=== PATIENT | male | born 1950 | race Caucasian/White ===

== ENCOUNTER → 2017-03-21 12:17 | Outpatient (CLI) | payer OTHER, SELFPAY ==
--- NOTE | 2017-03-21 12:27 | XR_ITS ---
XR lumbar spine min 4V Ordering Physician: Maria Isabel Baldwin MD Patient Age: 67 years: Male HISTORY: ITS.REASON: RT HIP/BACK PAIN TECHNIQUE: 5 view lumbar spine series COMPARISON :None available FINDINGS The lumbar vertebral bodies are intact. No compression fracture. Normal alignment. . The slight irregular appearance of the left L1 transverse process is similar to chest film and rib films from January 27, 2013. And may reflect old fracture left L1 transverse process but no acute finding. No pars defect. No listhesis Disc space narrowing most evident at L5/S1 with vacuum phenomena. There may be some partial sacralization of L5 to the right. Question a line of suture material to the left the spine possibly from previous renal surgery. Several vascular clips along the left periaortic region as well. Clinical correlation required. Left nephrectomy? IMPRESSION. 1. No prominent findings. No significant change: Observations: ... Narrowed Degenerative disc at L5/S1 most notable degenerative feature.. ... Only Borderline narrowing posterior L4-5 disc space. ... Partial sacralization L5 to the right-anatomical variant
== END ==
PROVIDERS: PCP Family Medicine; Visit Provider Family Medicine
DX: M54.41 Lumbago with sciatica, right side (principal)
CPT/HCPCS: 72110

== ENCOUNTER → 2017-03-25 09:15 | Outpatient (CLI) | payer OTHER, SELFPAY ==
--- NOTE | 2017-03-25 09:15 | MR_ITS ---
MR lumbar spine wo con, MR 3-d myelogram/MRCP HISTORY: Low back pain, right-sided leg pain, sciatica, pain and numbness down right leg ITS.REASON: SPRAIN OF LOW BACK, RIGHT SIDED SCIATICA ORDERING PHYSICIAN: Maria Isable Baldwin MD PATIENT AGE: 67 years COMPARISON: 03/21/2017 TECHNIQUE: Standard multiplanar multiecho sequences are performed without contrast. 3-D MIP and myelographic images are also rendered and reviewed FINDINGS: There is normal alignment. The spinal cord ends at the L1 level. T12-L1, L1-L2, L2-L3, and L3-L4 have an unremarkable appearance. L4-L5: There is a medium-sized right paracentral disc herniation with inferior extrusion compressing upon the right L5 nerve root and causing right lateral recess narrowing. The disc is extruded inferiorly for a length of approximately 1.7 cm.. Inferiorly the disc moves into the right lateral recess and medial aspect of the foramen of L5-S1. L5-S1: Degenerative disc disease with bulging disc slightly eccentric to the left with endplate osteophytes with moderate to severe bilateral foraminal narrowing left greater than right. The bulging disc abuts the left S1 nerve root. Left kidney is not identified and presumed surgically removed. IMPRESSION: 1. Medium-sized right paracentral disc herniation at L4-L5 with inferior extrusion compressing upon the right L5 nerve root and causing right lateral recess narrowing. The disc is extruded inferiorly for a length of approximately 1.7 cm.. Inferiorly the disc moves into the right lateral recess and medial aspect of the foramen of L5-S1. 2. Degenerative disc disease L5-S1 with bulging disc slightly eccentric to the left with endplate osteophytes with moderate to severe bilateral foraminal narrowing left greater than right. The bulging disc abuts the left S1 nerve root
== END ==
PROVIDERS: Family Provider Family Medicine; PCP Family Medicine; Visit Provider Family Medicine
DX: S33.9XXD Sprain of unspecified parts of lumbar spine and pelvis, subsequent encounter (principal); M54.41 Lumbago with sciatica, right side; M51.37 Other intervertebral disc degeneration, lumbosacral region
CPT/HCPCS: 72148; 76376

== ENCOUNTER 2017-06-09 08:00 | Outpatient (RCR) | payer OTHER, SELFPAY | END 2017-06-09 08:01 | disposition home or self-care (01) | LOC: PT 08:00 | PROVIDERS: Family Provider Family Medicine; PCP Family Medicine; Visit Provider Neurological Surgery | DX: M45.4 Ankylosing spondylitis of thoracic region (principal) | CPT/HCPCS: 97010; 97012; 97014; 97110; 97164; G0283 ==

== ENCOUNTER 2017-09-01 08:00 | Outpatient (RCR) | payer OTHER, SELFPAY | END 2017-09-01 08:01 | disposition home or self-care (01) | LOC: PT 08:00 | PROVIDERS: Family Provider Family Medicine; PCP Family Medicine; Visit Provider Neurological Surgery | DX: M54.5 Low back pain (principal) | CPT/HCPCS: 97010; 97012; 97014; 97110; 97163; G0283 ==

== ENCOUNTER → 2019-07-25 13:31 | Outpatient (CLI) | payer MEDICARE, BC, SELFPAY ==
--- NOTE | 2019-07-25 13:34 | MR_ITS ---
PROCEDURE: MR SHOULDER LT WO CON CLINICAL INDICATION: PAIN IN LEFT SHOULDER Left shoulder pain COMPARISON: No exams were available for comparison TECHNIQUE: Routine multiplanar multi echo sequences are performed without gadolinium enhancement. FINDINGS: There is some thickening with increased T2 signal of the supraspinatus and infraspinatus tendons distally consistent with tendinopathy/tendinosis. There is no evidence of rotator cuff tear. There is mild subacromial stenosis with a subacromial space measuring 5 mm. No significant hypertrophic change of the acromioclavicular joint however. The the bicipital tendon is in place. There appears to be a [place] complex with a thickened middle glenohumeral ligament and absent anterior labrum from the 12 to 3 o'clock position. There is a small amount of fluid in the sub coracoid region. The subscapularis and teres minor tendons appear intact. IMPRESSION: 1. Tendinopathy/tendinosis of the supraspinatus and infraspinatus tendon with mild subacromial stenosis. 2. No evidence of rotator cuff tear. 3. Daya complex as a normal variant. 4. Mild subcoracoid bursitis Dictated by: Daniel Farris MD 07/26/2019 14:29 Electronically signed by Daniel Farris MD in [place] 07/26/2019 14:29
== END ==
PROVIDERS: PCP Family Medicine; Visit Provider Family Medicine
DX: M25.512 Pain in left shoulder (principal)
CPT/HCPCS: 73221

== ENCOUNTER 2019-10-30 10:00 | Outpatient (RCR) | payer MEDICARE, BC, SELFPAY ==
--- NOTE | 2019-08-07 11:05 | HMH.PTOPEV ---
PT Outpatient Evaluation Rehab PT Outpatient Evaluation Start: 08/07/19 10:05 Freq: Status: Active Protocol: Document 08/07/19 10:05 ERNIE (Rec: 08/07/19 11:05 ERNIE [id number]) Electronically Signed By Leroy High, PT 08/07/19 10:05 Outpatient Therapy Subjective History Subjective History Pt reports insidious onset L sided neck pain/soreness beginning in fall/winter, however, 'I think since the weather has gotten better I've been doing more, and that's got it fired up'. Pt reports L UT mm pain with referred pain into cervical region. Chief Complaint Pain,Spasms,Stiff Symptom Type Ache,Dull Symptoms Relieved By Rest/Positioning,Ice Symptoms Aggravated By Physical Activity,Lifting Prior Functional Limitations Lifting,Housework Current Functional Limitations Lifting,Housework Symptom Description Constant but Variable Level of pain today (0-10) 2 Pain scale - at its best (0-10) 1 Pain scale - at its worst (0-10) 5 Cervical Eval Palpation Cervical Muscles L Upper Trapezius Cervical/Thoracic Palpation Findings Trigger Point Posture Head/C-Spine Posture Sitting Position Flexed Head/C-Spine Posture Standing Position Flexed Flexibility Deficits Upper Trapezius Muscle Length (L) Moderate Tightness Levaetor Scapulae Muscle Length (L) Moderate Tightness Scalene Group Muscle Length (L) Moderate Tightness Passive Joint Mobility Cervical PIVM WNL: R OA L OA R AA L AA R C2/3 L C2/3 R C3/4 L C3/4 R C4/5 L C4/5 R C5/6 L C5/6 R C6/7 L C6/7 R C7/T1 L C7/T1 Special Test C-Spine Foraminal Compression (Sp[place]) Negative Left,Negative Right Test Shoulder/Elbow Eval Shoulder Objective Measurements Shoulder ROM Bilateral full ROM shoulder exam standard left Shoulder MMT Left Shoulder Abduction Strength Grade 5 Normal Shoulder Flexion Strength Grade 5 Normal Shoulder External Rotation Strength 4 Good Grade
--- NOTE | 2019-09-04 08:17 | HMH.RHREAS ---
Rehab Reassessment Rehab OP Re-assessment Start: 09/04/19 07:47 Freq: Status: Active Protocol: Document 09/04/19 07:47 ERNIE (Rec: 09/04/19 08:17 ERNIE [id number]) Electronically Signed By Leroy High, PT 09/04/19 07:47 Rehab Re-assessment Subjective Subjective Pt reports slight exacerbation over the last 2-3 days, ' there's been a slight burning sensation in that same upper trap area on the left'. Pt reports 'this was a step back, but overall I think it's better'. Objective Objective Notes CROM: WFL ALL DIRECTIONS, AROM L SH WFL ALL DIRECTIONS MMT: L DELTOID 4+-5/5, L IR 5/ 5, L ER 4+/5 TTP: L UT 2/4 MM FLEXIBILITY: L UT 75% OF WFL, L SCALENE 75-80% OF WFL Assessment Progress Assessment Slower Than Expected Assessment Notes PT W/IMPROVED STRENGTH, TTP, AND ROM Patient goals met STG'S 06/06 Goals Not Met STG'S 07/06 Plan Plan PT TO CONT. W/SKILLED P.T. TO MAKE FURTHER IMPROVEMENTS IN ROM, STRENGTH, AND TTP TO ALLOW FOR OPTIMAL FUNCTION Frequency of Therapy 2-3X/WK Duration of therapy 2-4WKS Time and Billing Re-Eval Time 15 Re-Eval Billing Units 0 PHYSICIAN CERTIFICATION: I certify the specified therapy services for Juan Pablo Elena are required, authorized, and reviewed every 30 days.
== END 2019-10-30 11:02 | disposition home or self-care (01) ==
LOC: PT 10:00
PROVIDERS: PCP Family Medicine; Visit Provider Family Medicine
DX: M25.512 Pain in left shoulder (principal)
CPT/HCPCS: 20560; 97010; 97014; 97035; 97110; 97140; 97163; 97164; G0283

== ENCOUNTER 2020-04-16 10:00 | Outpatient (RCR) | payer MEDICARE, BC, SELFPAY ==
--- NOTE | 2020-02-06 14:07 | HMH.PTOPEV ---
PT Outpatient Evaluation Rehab PT Outpatient Evaluation Start: 02/06/20 12:53 Freq: Status: Active Protocol: Document 02/06/20 13:17 ERNIE (Rec: 02/06/20 14:06 ERNIE [id number]) Electronically Signed By Leroy High, PT 02/06/20 13:17 Outpatient Therapy Subjective History Subjective History Pt reports h/o chronic neck pain for ~2 yrs, exacerbation over of the last ~6 months. Pt reports L sided neck pain with referred pain into L UTmm , L shoulder blade area, and intermittent cervicogenic MACK's . MRI of L SH has revealed supra- and infraspinatus tendinitis. Chief Complaint Pain,Stiff,Swelling, Paresthesia Symptom Type Ache,Sharp,Dull,Burning, Numbness,Tingling Symptoms Relieved By Prescription Meds Symptoms Aggravated By Physical Activity,Lifting Prior Functional Limitations Lifting,Housework Current Functional Limitations Lifting,Housework,Driving, Sleeping Symptom Description Constant but Variable Level of pain today (0-10) 3 Pain scale - at its best (0-10) 0 Pain scale - at its worst (0-10) 7 Cervical Eval Palpation Cervical Muscles L Cervical Paraspinal,L Suboccipital,L CT [place]unction,L Upper Trapezius Cervical/Thoracic Palpation Findings Tenderness,Trigger Point Posture Head/C-Spine Posture Sitting Position Flexed Head/C-Spine Posture Standing Position Flexed Flexibility Deficits Upper Trapezius Muscle Length (L) Mild Tightness Levaetor Scapulae Muscle Length (L) Mild Tightness Scalene Group Muscle Length (L) Mild Tightness Pectoralis Major Muscle Length (R) Mild Tightness,(L) Mild Tightness Pectoralis Minor Muscle Length (R) Mild Tightness,(L) Mild Tightness Passive Joint Mobility Cervical PIVM Dec: R OA L OA R AA L AA R C2/3 L C2/3 R C3/4 L C3/4 R C4/5 L C4/5 R C5/6 L C5/6 R C6/7 L C6/7
--- NOTE | 2020-03-12 10:36 | HMH.RHREAS ---
Rehab Reassessment Rehab OP Re-assessment Start: 03/12/20 09:47 Freq: Status: Active Protocol: Document 03/12/20 10:32 ERNIE (Rec: 03/12/20 10:35 ERNIE [id number]) Electronically Signed By Leroy High, PT 03/12/20 10:32 Rehab Re-assessment Subjective Subjective PT REPORTS 0-2/10 L SIDED NECK PAIN ON VAS, AND FEELS 80-90% BETTER SINCE I EVAL Objective Objective Notes CROM: FLX 0-60, EXT 0-55, B SB 0-50, B ROT 0-65 MMT: L DELTOID 4-4+/5 TTP: L UT MM 03/03 Assessment Progress Assessment Progressing as Expected Assessment Notes IMPROVED CROM, STRENGTH, AND TTP Patient goals met STG'S 08/03 LTG'S 06/05 Goals Not Met LTG'S 06/05 Plan Plan PT TO CONT. W/SKILLED P.T. TO MAKE FURTHER IMPROVEMENTS IN CROM, STRENGTH, AND TTP TO ALLOW FOR OPTIMAL FUNCTION Frequency of Therapy 1-2X/WK Duration of therapy 2-4 WKS Time and Billing Re-Eval Time 15 Re-Eval Billing Units 0 PHYSICIAN CERTIFICATION: I certify the specified therapy services for Juan Pablo Elena are required, authorized, and reviewed every 30 days.
== END 2020-04-16 10:05 | disposition home or self-care (01) ==
LOC: PT 10:00
PROVIDERS: PCP Family Medicine; Visit Provider Family Medicine
DX: M25.512 Pain in left shoulder (principal); M54.2 Cervicalgia
CPT/HCPCS: 20560; 97010; 97012; 97014; 97035; 97110; 97163; 97164; G0283

== ENCOUNTER → 2020-12-04 15:39 | Outpatient (CLI) | payer MEDICARE, BC, SELFPAY ==
--- NOTE | 2020-12-04 15:43 | MR_ITS ---
PROCEDURE INFORMATION: Exam: MR Left Lower Extremity Joint Without Contrast, Knee Exam date and time: 12/04/2020 3:43 PM Age: 70 years old Clinical indication: Pain; Knee; Left; Additional info: Acute pain of left knee TECHNIQUE: Imaging protocol: MR of the Left lower extremity joint without contrast. Exam focused on the knee. COMPARISON: No relevant prior studies available. FINDINGS: Bones and cartilage: Mild edema posteromedial to the knee. A small patellar enthesophyte is visualized. There is cartilage thinning/loss at the weight-bearing surface of the medial femoral condyle. No visualized acute marrow edema. No dislocation of the knee. Joint spaces: Small patellofemoral joint effusion. Medial meniscus: There is a horizontal tear of the posterior horn and body of the medial meniscus, which is predominantly intrasubstance. Myxoid degeneration of the posterior horn of the medial meniscus. Lateral meniscus: No visualized tear of the lateral meniscus extending to an articulating surface. Myxoid degeneration of the lateral meniscus. Anterior cruciate ligament: The proximal anterior cruciate ligament is small in caliber with abnormal signal intensity between this ligament and the lateral femoral condyle. Partial tear is suggested. Posterior cruciate ligament: No tear. Medial capsule and supporting structures: Mild edema adjacent to the medial collateral ligament, consistent with a grade 1 MCL injury/sprain. Lateral capsule and supporting structures: Mild fluid adjacent to the popliteus tendon, without visualized tear. No visualized tear of the lateral collateral ligament. Extensor mechanism of knee: No tear. Muscles: No visualized acute abnormality. Soft tissues: Edema within Hoffa's fat. Mild soft tissue swelling anteriorly. The mild additional soft tissue edema posteriorly. A multiloculated cystic collection of fluid is identified posterior to the knee measuring 1.5 x 2.1 x 1.1 cm. IMPRESSION: 1. Grade 1 MCL injury/sprain. 2. The proximal anterior cruciate ligament is small in caliber with abnormal signal intensity between this ligament and the lateral femoral condyle. Partial tear is suggested. 3. There is a horizontal tear of the posterior horn and body of the medial meniscus, which is predominantly intrasubstance. Myxoid degeneration of the posterior horn of the medial and lateral menisci. 4. Mild soft tissue swelling. A multiloculated cystic collection of fluid is identified posterior to the knee measuring 1.5 x 2.1 x 1.1 cm. 5. Additional findings described above.
== END ==
PROVIDERS: PCP Family Medicine; Visit Provider Family Medicine
DX: M25.562 Pain in left knee (principal)
CPT/HCPCS: 73721

== ENCOUNTER 2021-01-08 10:00 | Outpatient (RCR) | payer MEDICARE, BC, SELFPAY ==
--- NOTE | 2020-12-16 11:07 | HMH.PTOPEV ---
PT Outpatient Evaluation Rehab PT Outpatient Evaluation Start: 12/16/20 10:02 Freq: Status: Active Protocol: Document 12/16/20 10:16 ERNIE (Rec: 12/16/20 11:07 ERNIE [id number]) Electronically Signed By Leroy High, PT 12/16/20 10:16 Outpatient Therapy Subjective History Subjective History Pt reports chronic left knee pain since sustaining injury during deep squat ~3 months ago. Pt reports immediate onset posterior (popiteal) left knee pain and pressure, no clicking, catching reported . REcent MRI of left knee has revealed partial MCL tear, medial mensicus tear, partial ACL tear, however, pt reports no instability. Chief Complaint Pain,Stiff Symptom Type Ache,Sharp,Dull Symptoms Relieved By Rest/Positioning Symptoms Aggravated By Physical Activity Prior Functional Limitations Squatting Current Functional Limitations Squatting Symptom Description Intermittent Level of pain today (0-10) 0 Pain scale - at its best (0-10) 0 Pain scale - at its worst (0-10) 5 Hip/Knee Eval Gait Observation General Gait Pattern Observation No Deviations/Normal Assistive Device Assistive Devices None / NA Palpation Tenderness left Knee Palpation Finding Tenderness Knee Palpation Overall Comment 1-2/4 MCL MMT Hip Flexion Strength Grade 5 Normal Hip Abduction Strength Grade 4 Good Hip Adduction Strength Grade 4 Good Hip Extension Strength Grade 5 Normal Hip External Rotation Strength Grade 5 Normal Hip Internal Rotation Strength Grade 5 Normal Knee Extension Strength Grade 5 Normal Knee Flexion Strength Grade 5 Normal ROM Knee Flexion Active Range of Motion ( 0-125 degrees) Knee ROM Reason Not Measured Within Functional Limits Outpatient Therapy Assessment Impairments Problems/Impairmments Palpation Tenderness,Impaired Strength,Impaired Squatting, Subjective C/O Pain,Impaired Self Care/Self Management Prognosis Rehab Potential Good Clinical Impression Consistent with Diagnosis Yes Short Term Goals Number of Weeks 2-4 Decreased Palpation Tenderness Yes: 0-1/4 left knee MCL Increase Strength Yes: 4+-5/5 LLE Improve Ability to Squat Yes: WFL FULL DEPTH LULY. LE'S Decrease Subjective C/O Pain Yes: 0-2/10 W/DEEP SQUATTING Patient to be Ind w/ HEP
== END 2021-01-08 10:05 | disposition home or self-care (01) ==
LOC: PT 10:00
PROVIDERS: PCP Family Medicine; Visit Provider Family Medicine
DX: S83.512D Sprain of anterior cruciate ligament of left knee, subsequent encounter (principal)
CPT/HCPCS: 97014; 97035; 97110; 97163; G0283

== ENCOUNTER → 2021-01-31 09:13 | Outpatient (CLI) | payer MEDICARE, BC, SELFPAY ==
[2021-01-31 09:29] LABS: Microscopic, Urine URINE MICROSCOPIC (MICROSCOPIC)
[2021-01-31 09:51] LABS: Basophils # 0.1 K/mm3 (0-0.2); Basophils % 0.8 % (0.1-2.0); Eosinophils # 0.2 K/mm3 (0.0-0.4); Eosinophils % 3.2 % (0.1-12.0); Hematocrit 46.1 % (42.0-52.0); Hemoglobin 15.3 g/dL (14.1-18.0); Lymphocytes # 1.5 K/mm3 (0.7-4.5); Lymphocytes % 23.2 % (10-50); Mean Corpuscular HGB Conc 33.2 g/dL (31.8-35.4); Mean Corpuscular Hemoglobin 29.8 pg (27.0-31.2); Mean Corpuscular Volume 89.6 fl (80-94); Mean Platelet Volume 8.2 fl (7.4-10.4); Monocytes # 0.4 K/mm3 (0.1-1.0); Monocytes % 6.5 % (1.7-9.3); Neutrophils # 4.2 K/mm3 (1.8-7.8); Neutrophils % 66.2 % (37.0-80.0); Platelet Count 222 K/mm3 (142-424); Red Blood Count 5.15 M/mm3 (4.60-6.20); Red Cell Distribution Width 12.4 % (11.5-17.5); White Blood Count 6.4 K/mm3 (4.8-10.8)
[2021-01-31 10:12] LABS: Appearance,Urine CLEAR (Clear); Bilirubin,Urine Negative (Negative); Blood, Urine Negative (Negative); Color,Urine YELLOW (Yellow); Glucose,Urine (UA) Negative (Negative); Ketones,Urine Negative (Negative); Leukocyte Esterase,Urine Negative (Negative); Nitrate,Urine Negative (Negative); Protein,Urine Negative (Negative); Urobilinogen,Urine 0.2 EU/dl (0.2)
[2021-01-31 10:27] LABS: Creatinine,Urine Random 134 mg/dL (Not Estab.); Total Protein,Urine Random < 5.0 mg/dL (0.0-12.0)
[2021-01-31 10:28] LABS: Squamous Epithelial Cell,Urine Occasional #/hpf (0-5)
[2021-01-31 11:41] LABS: Albumin Level 4.3 g/dl (3.5-5.0); Anion Gap 10.7 mEq/L (5-15); Blood Urea Nitrogen 12 mg/dl (9-20); Calcium 9.5 mg/dl (8.4-10.2); Carbon Dioxide 30 mmol/L (22.0-30.0); Chloride 99 mmol/L (98-107); Estimated Glomerular Filt Rate 66 ml/min (>60); GFR (African American) 80 ML/MIN (>60); Glucose 104 mg/dl (74-100); Phosphorous 3.6 mg/dl (2.5-4.5); Potassium 4.7 mmoL/L (3.5-5.1); Sodium 135 mmol/L (136-145)
[2021-01-31 11:53] LABS: Intact Parathyroid Hormone 66.9 pg/mL (7.5-53.5)
[2021-01-31 11:59] LABS: 25-OH Vitamin D, Total 61.5 ng/mL (30-100)
== END ==
PROVIDERS: Visit Provider Internal Medicine Nephrology
DX: N18.30 Chronic kidney disease, stage 3 unspecified (principal); Z90.5 Acquired absence of kidney
CPT/HCPCS: 36415; 80069; 81001; 82306; 82570; 83970; 84155; 85025

== ENCOUNTER → 2021-02-02 13:53 | Outpatient (POV) | payer MEDICARE, BC, SELFPAY | PROVIDERS: Visit Provider Internal Medicine Nephrology | DX: Z00.00 Encounter for general adult medical examination without abnormal findings (principal) ==

== ENCOUNTER 2021-12-14 09:30 | Outpatient (RCR) | payer MEDICARE, BC, SELFPAY ==
--- NOTE | 2021-10-12 09:22 | HMH.PTOPEV ---
PT Outpatient Evaluation Rehab PT Outpatient Evaluation Start: 10/12/21 08:45 Freq: Status: Active Protocol: Document 10/12/21 08:46 ERNIE (Rec: 10/12/21 09:22 ERNIE [id number]) Electronically Signed By Leroy High, PT 10/12/21 08:46 Outpatient Therapy Subjective History Subjective History Pt reports right LE radicular pain and s/s since falling getting out of the shower in May. Pt reports some right sided LBP since injury, but majority of s/s in the right hip/glut mm area, with referred pain down right LE to foot/ankle. Pt reports 'it feels like my right hip might give out'. PMH: microdiscectomy L4-5 2018. Chief Complaint Pain,Stiff,Paresthesia, Weakness Symptom Type Ache,Sharp,Dull,Stabbing, Burning,Numbness,Tingling Symptoms Relieved By Rest/Positioning,Heat,OTC Meds ,Prescription Meds Symptoms Aggravated By Standing,Physical Activity, Walking Prior Functional Limitations Housework,Standing,Walking Current Functional Limitations Housework,Standing,Walking Symptom Description Constant but Variable Level of pain today (0-10) 5 Pain scale - at its best (0-10) 3 Pain scale - at its worst (0-10) 5 Lumbopelvic Eval Posture Thoracic Spine Posture Standing Position Neutral Lumbar Spine Posture Standing Position Neutral Assistive device Assistive Devices None / NA Gait Observation General Gait Pattern Observation Antalgic Gait Palapation tenderness right paraspinal tenderness Yes: 1/4 buttock tenderness Yes: 2/4 Lumbar/Sacral Palpation Findings Tenderness,Trigger Point Accessory Movement L-spine Vertebrae Accessory Movements [employer] [place] that Elicit Symptoms L4 right L5 right Range of Motion Lumbar Spine Active Flexion Range of 0-70 Motion (degrees) Lumbar Spine Active Extension Range of 0-10 Motion (degrees) Left Lumbar Spine Lateral Flexion Active 0-25 Range of Motion (degrees) Right Lumbar Spine Lateral Flexion 0-25 Active Range of Motion (degrees) Lumbar Spine ROM Limitations Soft Tissue Tightness Manual Muscle Test Bilateral Knee Extension Strength Grade 5 Normal Knee Flexion Strength Grade 5 Normal Hip Flexion Strength Grade 4 Good Hip Abduction Strength Grade 4 Good Extensor
--- NOTE | 2021-11-18 09:21 | HMH.RHREAS ---
Rehab Reassessment Rehab OP Re-assessment Start: 11/18/21 09:01 Freq: Status: Active Protocol: Document 11/18/21 09:02 [email or web address] (Rec: 11/18/21 09:21 ERNIE [id number]) E-signed By Leroy High, PT Rehab Re-assessment Subjective Subjective Pt reports significant improvement in right hip area pain and function since I eval , and reports no pain this am Objective Objective Notes AROM: LUMBAR SPINE WFL ALL DIRECTIONS MMT: RIGHT HIP ABD 4+/5, RIGHT HIP FLX 5/5 TTP: RIGHT GLUT MED 0/4, RIGHT GLUT MAX 0/4, RIGHT GREATER TROCHANTER 0/4 GAIT: WFL ON LEVEL AND UNLEVEL TERRAIN Assessment Progress Assessment Progressing as Expected Assessment Notes SIGNIFICANT IMPROVEMENT IN STRENGTH, ROM, TTP, AND GAIT Patient goals met STG'S 10/05 LTG'S 09/05 Goals Not Met LTG'S 04/08 Plan Plan Pt to continue w/skilled P.T. to make further improvements in strength to allow for optimal function Frequency of Therapy 1-2x/wk Duration of therapy 2-4wks Time and Billing Re-Eval Time 12 Re-Eval Billing Units 1 PHYSICIAN CERTIFICATION: I certify the specified therapy services for Juan Pablo Elena are required, authorized, and reviewed every 30 days.
== END 2021-12-14 09:35 | disposition home or self-care (01) ==
LOC: PT 09:30
PROVIDERS: PCP Family Medicine; Visit Provider Family Medicine
DX: M53.3 Sacrococcygeal disorders, not elsewhere classified (principal); M51.26 Other intervertebral disc displacement, lumbar region
CPT/HCPCS: 20560; 97010; 97014; 97110; 97163; 97164; G0283

== ENCOUNTER → 2022-01-19 11:02 | Outpatient (CLI) | payer MEDICARE, BC, SELFPAY ==
[2022-01-19 13:13] LABS: Ferritin 67.3 ng/ml (17.9-464)
== END ==
PROVIDERS: PCP Family Medicine; Visit Provider Nurse Practitioner Family
DX: E83.10 Disorder of iron metabolism, unspecified (principal)
CPT/HCPCS: 36415; 82728

== ENCOUNTER → 2022-02-05 13:07 | Outpatient (CLI) | payer MEDICARE, BC, SELFPAY | PROVIDERS: PCP Family Medicine; Visit Provider Nurse Practitioner Family | DX: G47.33 Obstructive sleep apnea (adult) (pediatric) (principal); G47.00 Insomnia, unspecified; R06.83 Snoring; G25.81 Restless legs syndrome; E83.10 Disorder of iron metabolism, unspecified | CPT/HCPCS: G0399 ==

== ENCOUNTER → 2022-05-10 11:45 | Outpatient (CLI) | payer MEDICARE, BC, SELFPAY ==
[2022-05-10 13:39] LABS: Ferritin 89.8 ng/ml (17.9-464)
== END ==
PROVIDERS: PCP Family Medicine; Visit Provider Nurse Practitioner Family
DX: E83.10 Disorder of iron metabolism, unspecified (principal); G25.81 Restless legs syndrome
CPT/HCPCS: 36415; 82728

== ENCOUNTER 2023-04-11 14:23 | Outpatient (CLI) | payer MEDICARE, BC, SELFPAY ==
[2023-04-11 16:25] LABS: Ferritin 114 ng/ml (17.9-464)
== END 2023-04-11 23:59 ==
LOC: LAB 14:25
PROVIDERS: PCP Family Medicine; Visit Provider Nurse Practitioner Family
DX: E83.10 Disorder of iron metabolism, unspecified (principal); Z98.890 Other specified postprocedural states
CPT/HCPCS: 36415; 82728

== ENCOUNTER 2023-07-10 11:02 | Emergency (ER) | payer MEDICARE, BC, SELFPAY ==
[2023-07-10 11:40] VITALS: BP 141/72; PULSE 60; RESP 20; TEMP 36.7; O2SAT 98; BMI 29.2
--- NOTE | 2023-07-10 12:07 | EXP.UTC ---
Discharge Plan Disposition Patient Disposition: Home, Self-Care Condition: Good Prescriptions Prescriptions: New azithromycin [Zithromax Z-Jack] 250 mg tablet See Rx Instructions .ROUTE .COMPLEX 5 Days Qty: 6 0RF Rx Instructions: For 250 mg dose pack: take 500 mg today (day 1), then 250 mg for 4 days (days 2-5) methylprednisolone [Medrol (Jack)] 4 mg tablets,dose pack See Rx Instructions .Route .COMPLEX 6 Days Qty: 21 0RF Rx Instructions: taper pack; guaifenesin [Mucinex] 600 mg tablet extended release 12hr 1,200 mg PO BID PRN (Reason: cough) Qty: 20 0RF dextromethorphan polistirex [Delsym 12 hour] 30 mg/5 mL suspension,extended rel 12 hr 10 ml PO Q12H PRN (Reason: cough) Qty: 89 0RF No Action famotidine 40 mg tablet 40 mg PO HS Patient Comments: TAKE 1 TABLET BY MOUTH EVERY DAY AT BEDTIME gabapentin 100 mg capsule 100 mg PO TID amlodipine 5 mg tablet 5 mg PO DAILY levothyroxine 137 MCG tablet 137 mcg PO DAILY atorvastatin 10 MG tablet 10 mg PO DAILY valsartan 160 MG tablet 160 mg PO DAILY Patient Comments: take 1 tablet by mouth once daily pramipexole 0.25 mg tablet 0.5 mg PO .COMPLEX Rx Instructions: Prescribe a PCP, patient is taking 0.75 mg at 5 PM, 0.25 mg at 10 PM; Referrals Follow up/Referrals: Maria Isabel Baldiwn MD [Primary Care Provider] - See instructions Activity Restrictions/Add. Instructions Additional Instructions/Restrictions: Start antibiotic today. Be sure to complete entire prescription even if feeling better Monitor temp. Tylenol every 4 hours as needed and / or ibuprofen every 6 hours as needed ( As long as your primary care physician has told you that it ok to take both. For fever/aches/pains ER if no less than 101 despite Tylenol or Motrin Humidifier/vaporizer or hot steamy shower Mucinex during the day for your cough and cough suppressant only at night. Be sure to drink lots of water. *Start steroid today. Helps with inflammation therefore, cough and wheezing. Follow directions on the package. Reviewed side effects. Patient reports taking them before. Follow up IMMEDIATELY for new or worsening of symptoms OR no noticeable improvement over the next 48-72 hours. 911 immediately for any life threatening symptoms such as chest pain or difficulty breathing Clinical Impressions Clinical Impression: Sinusitis, Bronchitis Instructions Patient Instructions: DI for Sinusitis, Sinusitis, Acute Bronchitis Discharge ED Provider: Demetra Seymour [facility] HPI General Stated complaint: congestion Mode of Arrival: Ambulatory Source of Information: Patient Limitations: No Limitations Time Seen by Provider: 07/10/23 12:07 Description of Symptoms (Recalled from Triage Doc. by RN): PATIENT C/O CHEST CONGESTION AND COUGH X 6 DAYS HEENT Symptoms (Recalled from RN notes): No Resp Symptoms (Recalled from RN notes): Yes Skin Symptoms (Recalled from RN notes): No MS Symptoms (Recalled from RN notes): No Functional Status (Recalled from RN notes): WNL History of Present Illness Provider Complaint: Patient states that he has been having sinus congestion/pressure on one side of his sinuses drainage in the back of his throat into his chest area States it is making him cough and at times he will cough up some mucous States today it wasnt any better so he came in to get checkecd Related Data Home Medications Medication Instructions Recorded Confirmed atorvastatin 10 mg tablet 10 mg PO DAILY High cholesterol 06/24/17 07/10/23 levothyroxine 137 mcg tablet 137 mcg PO DAILY hypothyroidism 06/24/17 07/10/23 valsartan 160 mg tablet 160 mg PO DAILY Pain 06/24/17 07/10/23 famotidine 40 mg tablet 40 mg PO HS 01/13/22 07/10/23 pramipexole 0.25 mg tablet 0.5 mg PO .COMPLEX restless leg 08/16/22 07/10/23 amlodipine 5 mg tablet 5 mg PO DAILY 02/10/23 07/10/23 gabapentin 100 mg capsule 100 mg PO TID 02/10/23 07/10/23 Previous Rx's Medication Instructions Recorded azithromycin 250 mg tablet See Rx Instructions PO .COMPLEX 5 07/10/23 (Zithromax Z-Jack) days #6 tabs dextromethorphan polistirex 30 10 ml PO Q12H PRN cough #89 mL 07/10/23 mg/5 mL oral susp ext.release 12hr (Delsym 12 hour) guaifenesin 600 mg tablet, 1,200 mg (2 x 600 mg) PO BID PRN 07/10/23 extended release 12 hr (Mucinex) cough #20 tabs methylprednisolone 4 mg tablets in See Rx Instructions .Route 07/10/23 a dose pack (Medrol (Jack)) .COMPLEX 6 days #21 tabs Allergies Allergy/AdvReac Type Severity Reaction Status Date / Time amoxicillin [From Augmentin] Allergy Verified 07/10/23 11:56 clavulanic acid Allergy Verified 07/10/23 11:56 [From Augmentin] Worker's Comp Is this a Worker's Comp case?: No [facility] Disclaimer: The information contained in this section may have been updated after the patient was seen, as this information can be updated by other users. Medical History (Updated 07/10/23 @ 12:17 by Demetra Seymour APRN) MARCUS (obstructive sleep apnea) Iron metabolism disorder Restless leg syndrome Surgical History History of back surgery Social History Smoking Status: Former smoker alcohol intake: current alcohol intake frequency: a few times a month substance use type: denies use current occupational status: retired Travel in the last 8 weeks: None household members: spouse housing: house marital status: ROS Obtained: Yes All systems reviewed & no additional complaints except as documented and Yes Systems reviewed as appropriate & no additional complaints except as documented Constitutional Constitutional: Reports system reviewed and no additional complaints, except as documented, Reports as per HPI and Reports headache(s) ENT Ears, Nose, Mouth, and Throat: Reports system reviewed and no additional complaints, except as documented, Reports as per HPI, Reports headache(s), Reports nasal congestion and Reports sinus pressure Cardiovascular Cardiovascular: Reports system reviewed and no additional complaints, except as documented and Reports as per HPI Respiratory Respiratory: Reports system reviewed and no additional complaints, except as documented, Reports as per HPI, Denies shortness of breath, Reports chest congestion and Reports cough Neurologic Neurologic: Reports headache(s) Physical Exam General General appearance: alert and in no apparent distress ENT ENT exam: Present mucous membranes moist Expanded ENT Exam Nose exam: Present other (reports congestion/pressure on right) Throat exam: Present other (PND noted) Respiratory Respiratory exam: Present normal lung sounds bilaterally; Absent respiratory distress or wheezes Cardiovascular Cardiovascular exam: Present regular rate, normal rhythm and normal heart sounds Neurological Exam Neurological exam: Present alert, oriented X3 and normal gait Medical Decision Making Morris Inquiry Pt receiving controlled substance: No Morris was queried for this patient: No Vital Signs: 07/10/23 11:40 Temperature 98.0 F Temperature Source Oral Pulse Rate [Left Brachial] 60 Respiratory Rate 20 Blood Pressure [Left Arm] 141/72 H Blood Pressure Mean [Left Arm] 95 Blood Pressure Source [Left Arm] Automatic Cuff Blood Pressure Position [Left Arm] Sitting 02 Sat by Pulse Oximetry 98 Oxygen Delivery Method Room Air
[2023-07-10 12:16] VITALS: BP 141/72; PULSE 60; RESP 20; TEMP 36.7; O2SAT 98
== END 2023-07-10 12:22 | disposition home or self-care (01) ==
PROVIDERS: Emergency Provider Nurse Practitioner; PCP Family Medicine
DX: J20.9 Acute bronchitis, unspecified (principal); J01.90 Acute sinusitis, unspecified; R09.82 Postnasal drip; R05.9 Cough, unspecified; R09.81 Nasal congestion
CPT/HCPCS: 99204; 99212; G0463

== ENCOUNTER 2023-09-14 12:05 | Outpatient (CLI) | payer MEDICARE, BC, SELFPAY ==
--- NOTE | 2023-09-14 12:12 | XR_ITS ---
FINAL REPORT CLINICAL HISTORY: LOCALIZED EDEMA FINDINGS: 2 views of the chest were obtained . The heart is normal in size. The mediastinum is within normal limits. The lungs are clear. There is no pneumothorax. Osseous structures are unremarkable. IMPRESSION: No acute cardiopulmonary process. Reviewed, Interpreted and Dictated by Tori Hernández MD Transcribed by Evelyn Chase Authenticated and [facility]
== END 2023-09-14 23:59 | disposition home or self-care (01) ==
LOC: RAD 12:06
PROVIDERS: PCP Family Medicine; Visit Provider Family Medicine
DX: R60.0 Localized edema (principal)
CPT/HCPCS: 71046

== ENCOUNTER 2023-09-20 08:24 | Outpatient (CLI) | payer MEDICARE, BC, SELFPAY ==
--- NOTE | 2023-09-20 08:30 | CA_ITS ---
APPROVED REPORT EXAM: Comprehensive 2D, Doppler, and color-flow Echocardiogram Dental Assistant Medical Assistant: Mena Tan RVT Ht: 5 ft 9 in Wt: 195lbs BSA: 2.04 BP: 153/72 mmHg Indications: DYSPENA,EDEMA,HTN,HLD,MARCUS 2D Dimensions LA Volume 50.60 mL LA Volume Index 24.68 mL/m2 (M/F) 16-34 M-Mode Dimensions RVDd 3.26 cm (0.9-2.6) LA Diam 3.81 cm (1.9-4.0) LVDd 5.38 cm (3.5-5.7) LVDs 3.43 cm (3.5-5.7) IVSd 0.47 cm (0.6-1.1) PWd 0.85 cm (0.6-1.1) EF (Teich) 65.40% FS 36.20% EDV (Teich) 140.10 mL TAPSE 2.65 (<1.7) ESV (Teich) 48.50 mL LV Diastology E Decel Time 150 (160-240 msec) E/A Ratio 1.1 Aortic Valve YAMILEX Index 1.08 cm2/m2 AoV Peak Kendall. 156.0 (50-130 cm/s) AO Peak GR. 9.70 mmHg AO Mean GR. 4.90 (<5 mmHg) AO VTI 35.5 (18-25 cm) YAMILEX (VTI) 2.26 (2.5-4.5 cm2) Mitral Valve MV E Max Kendall. 95.0 (40-130 cm/s) MV A Velocity 83.0 (40-130 cm/s) E/A Ratio 1.15 MV PHT 44.0 ms Pulmonary Valve PV Peak Velocity 81.0 (50-150 cm/s) Tricuspid Valve TR P. Velocity 180.00 cm/s RAP Estimate 10.00 mmHg RVSP 22.90 mmHg Left Ventricle The left ventricle is normal size. The left ventricular systolic function is normal. The left ventricular ejection fraction is within the normal range. There is increased LV wall thickness. There is normal LV segmental wall motion. The left ventricular diastolic function is normal. LVEF is 55%. Right Ventricle The right ventricle is mildly dilated. The right ventricular systolic function is normal. Atria The left atrium size is normal. The right atrium size is normal. There is no Doppler evidence of interatrial shunt. Aortic Valve The aortic valve opens well. There is no aortic valvular stenosis. Trace aortic regurgitation. Mitral Valve The mitral valve is normal in structure. No evidence of mitral valve stenosis. Trace mitral regurgitation. Tricuspid Valve The tricuspid valve leaflets are thin and pliable. Trace tricuspid regurgitation. There is insufficient TR jet to estimate RVSP. Pulmonic Valve The pulmonary valve is normal in structure. Trace pulmonic regurgitation. Great Vessels The aortic root is normal in size. The ascending aorta is not well-visualized. IVC is normal in size and collapses >50% with inspiration. Pericardium There is no pericardial effusion. Other Information Study Quality: Fair Conclusion Normal biventricular systolic function. Mild RV dilation. No significant valvular stenosis or regurgitation. Electronically signed by : Gema Watkins MD 09/20/2023 12:22:48
== END 2023-09-20 23:59 | disposition home or self-care (01) ==
LOC: RT 08:25
PROVIDERS: PCP Family Medicine; Visit Provider Family Medicine
DX: I51.7 Cardiomegaly (principal); R60.0 Localized edema; R06.00 Dyspnea, unspecified
CPT/HCPCS: 93306

== ENCOUNTER 2024-01-13 10:44 | Outpatient (CLI) | payer MEDICARE, BC, SELFPAY ==
--- NOTE | 2024-01-13 10:50 | CT_ITS ---
FINAL REPORT TECHNIQUE: Axial CT images of the abdomen were obtained without contrast. Coronal reformatted images were also obtained.This study was performed with techniques to keep radiation doses as low as reasonably achievable (ALARA). Individualized dose reduction techniques using automated exposure control or adjustment of mA and/or kV according to the patient''s size were employed. CLINICAL HISTORY: adrenal glands; hyponatremia FINDINGS: The lung bases are clear. The liver has an unremarkable appearance, without evidence of mass. The patient is status post cholecystectomy. There is no evidence of biliary ductal dilatation. The pancreas appears normal. The spleen size is within normal limits. The adrenal glands are within normal limits with respect to size. No mass is seen. The patient is status post left nephrectomy. The right kidney is unremarkable. There is no evidence of adenopathy. No abnormal fluid collection is seen. No localized inflammatory processes identified. There are mild vascular calcifications. There is a small umbilical hernia containing fat. Degenerative changes are seen in the lumbar spine. IMPRESSION: No mass or localized inflammatory process identified. Status post cholecystectomy and left nephrectomy. Reviewed, Interpreted and Dictated by Renan Sotelo III, MD Transcribed by Shona Preciado Authenticated and . [facility]
== END 2024-01-13 23:59 | disposition home or self-care (01) ==
LOC: RAD 10:46
PROVIDERS: PCP Family Medicine; Visit Provider Family Medicine
DX: E87.1 Hypo-osmolality and hyponatremia (principal)
CPT/HCPCS: 74150

== ENCOUNTER 2024-02-16 15:00 | Outpatient (RCR) | payer MEDICARE, BC, SELFPAY ==
--- NOTE | 2024-01-24 10:04 | HMH.PTOPEV ---
PT Outpatient Evaluation Rehab PT Outpatient Evaluation Start: 01/24/24 09:13 Freq: Status: Active Protocol: Document 01/24/24 09:13 ERNIE (Rec: 01/24/24 10:04 ERNIE [id number]) E-signed By Leroy High, PT Outpatient Therapy Subjective History Subjective History Pt reports recent insidious onset LBP beginning ~ 1 month ago, right side > left side pain. Pt reports some resolution of LBP s/s over the last ~7-10 days, however, reports ongoing intermittent episodes of right sided LBP w/ referred pain into right thoraco-lumbar region, and intermittent episodes of some left sided LBP. Pt denies any other pertinent PMH. New diagnosis of cancer in past 12 No months? Chief Complaint Pain,Stiff Symptom Type Ache,Dull Symptoms Relieved By Rest/Positioning,Heat Symptoms Aggravated By Physical Activity,Twisting, Lifting Prior Functional Limitations None Current Functional Limitations Lifting,Housework,Standing, Bending/Stooping Symptom Description Constant but Variable, Intermittent Level of pain today (0-10) 0 Pain scale - at its best (0-10) 0 Pain scale - at its worst (0-10) 3 Lumbopelvic Eval Posture Thoracic Spine Posture Standing Position Neutral Lumbar Spine Posture Standing Position Neutral Assistive device Assistive Devices None / NA Gait Observation General Gait Pattern Observation No Deviations/Normal Palapation tenderness left lumbar spinal tenderness Yes: 1/4 paraspinal tenderness Yes: 1/4 Lumbar/Sacral Palpation Findings Tenderness right thoracic spinal tenderness Yes: 1/4 lumbar spinal tenderness Yes: 1/4 paraspinal tenderness Yes: 2/4 Lumbar/Sacral Palpation Findings Tenderness Accessory Movement L-spine Vertebrae Accessory Movements [place] that Elicit Symptoms L4 right L5 right Range of Motion Lumbar Spine Active Flexion Range of 0-55 Motion (degrees) Lumbar Spine Active Extension Range of 0-30 Motion (degrees) Left Lumbar Spine Lateral Flexion Active 0-25 Range of Motion (degrees) Right Lumbar Spine Lateral Flexion 0-25 Active Range of Motion (degrees) Lumbar Spine ROM Limitations Soft Tissue Tightness Manual Muscle Test Bilateral Knee Extension Strength Grade 5 Normal Knee Flexion Strength Grade 5 Normal Hip Flexion Strength Grade 4 Good Hip Abduction Strength Grade 4- Good- Hip Adduction Strength Grade 5 Normal Hip Extension Strength Grade 5 Normal Extensor Hallucis Longus Strength Grade 5 Normal Ankle Dorsiflexion Strength Grade 5 Normal Gastronemius/Soleus Strength Grade 5 Normal Special Tests Hip Piriformis Test Negative Left,Negative Right Sciatic Nerve Tension Test Negative Left,Negative Right Lumbar [place] Distraction Test/Manual Negative Traction Oswestry Index Section 1 Pain Intensity The pain comes and goes and is moderate Section 2 Personal Care (Washing,Dresing) my way of washing or dressing even though it causes some pain Section 3 Lifting I can lift heavy weights, but it gives me extra pain Section 4 Walking I have some pain when walking but it does not increase with distance Section 5 Sitting I can sit in my favorite chair for as long as I like Section 6 Standing I have some pain on standing, but it does not increase with time Section 7 Sleeping I get no pain in bed Section 8 Social Life My social life is normal and gives me no extra pain Section 9 Traveling I get extra pain while traveling, but it does not compel me to seek al Section 10 Changing Degreee of Pain My pain is getting better Score and Risk Level Oswestry Sc 9 Oswestry Risk Level Mild Disability Outpatient Therapy Assessment Impairments Problems/Impairmments Palpation Tenderness,Impaired Range of Motion,Impaired Strength,Impaired Lifting, Impaired Household Care, Impaired Bending,Subjective C/ O Pain,Impaired Self Care/Self Management Prognosis Rehab Potential Good Clinical Impression Consistent with Diagnosis Yes Short Term Goals Number of Weeks 4-6 Decreased Palpation Tenderness Yes: 0-1/4 lumbar mm, thoraco- lumbar mm Increase Range of Motion Yes: WFL LUMBAR AROM Increase Strength Yes: 4+-5/5 B/L HIP MM Restore Ability to Lift Objects to Waist Yes: 25-30# FOR HOUSEWORK Level Improve Ability For Household Care Yes: 45-60MIN Improve Ability to Bend Yes: WFL Improve Oswestry Score Yes: 4-6 Decrease Subjective C/O Pain Yes: 0-2/10 W/ABOVE ACTIVITIES Patient to be Ind w/ HEP Yes Patient to be Ind w/ Advanced HEP Yes Outpatient Therapy Plan of Care Treatment Plan May Include Therapeutic Exercise Including Home Yes Exercise Program Manual Therapy Techniques Yes Neuromuscular Re-education Yes Therapeutic Activities to Return to Yes Previous Functional/Work Level Gait Training Yes ADL/Self Care Education Yes Mechanical Traction Yes Dry Needling Yes Thermal Modalities Yes Electrical Stimulation Yes Ultrasound/Phonophoresis Yes Eval/Re-Eval Yes Frequency Times per week 2-3 Duration Number of Weeks 4-6 Addendums This patient is a candidate for social No or vocational rehab? Patient/Guardian verbally acknowledges Yes understanding of treatment program and consents to further treatment? Patient/Guardian verbally acknowledges Yes understanding of diagnosis, prognosis and goals for treatment? Eval Complexity PT Charges 61212 - Low Complexity Shoulder/Elbow Eval Shoulder Objective Measurements Elbow Objective Measurements PHYSICIAN CERTIFICATION: I certify the specified therapy services for Juan Pablo Elena are required, authorized, and reviewed every 30 days.
== END 2024-02-16 23:59 | disposition home or self-care (01) ==
LOC: PT 15:00
PROVIDERS: PCP Family Medicine; Visit Provider Psychiatry & Neurology Sleep Medicine
DX: M54.50 Low back pain, unspecified (principal)
CPT/HCPCS: 97014; 97110; 97140; 97163; G0283

== ENCOUNTER 2024-03-30 09:00 | Outpatient (RCR) | payer MEDICARE, BC, SELFPAY ==
--- NOTE | 2024-03-16 10:50 | HMH.RHREAS ---
Rehab Reassessment Rehab OP Re-assessment Start: 03/16/24 09:50 Freq: Status: Active Protocol: Document 03/16/24 10:01 OBDULIA (Rec: 03/16/24 10:50 OBDUILA [id number]) E-signed By Carlos Dyer, PT Oswestry Index Section 1 Pain Intensity The pain is mild and does not vary much Section 2 Personal Care (Washing,Dresing) change my way of washing or dressing in order to avoid pain Section 3 Lifting I can lift heavy weights, but it gives me extra pain Section 4 Walking I have some pain when walking but it does not increase with distance Section 5 Sitting I can sit in my favorite chair for as long as I like Section 6 Standing I have some pain on standing, but it does not increase with time Section 7 Sleeping I get no pain in bed Section 8 Social Life My social life is normal and gives me no extra pain Section 9 Traveling I get some pain when traveling , but none of my usual forms of travel m Section 10 Changing Degreee of Pain My pain is getting better Score and Risk Level Oswestry Sc 6 Oswestry Risk Level Mild Disability Rehab Re-assessment Subjective Subjective Pt reports that overall he has noticed some slight improvement. He would estimate that he is 50% improved. He reports that he is able to lift items without pain. His biggest difficulty at this point is bending and twisting. Certain positions continue to cause his pain. He reports that his present pain is a 2/ 10. He reports that he does not have pain all of the time. He reports that his pain does not exceed a 4/10 even at its worse. Objective Objective Notes DEANN: 6 (9 on IE) Strength: Hip Flexion: 5/5 B Knee Extension: 5/5 B Knee Flexion: 5/5 B Hip ABD: 4+/5 B ROM: 100% flexion 100% Lateral Flexion B 75% Lumbar Extension TTP: 0-4 Lumbar spine Assessment Progress Assessment Progressing as Expected Assessment Notes Pt has met several stated therapy goals. He has demonstrated improvements in strength, pain, and motion. However, he still continues to have difficulty with twisting and bending motions and difficulty with sustained postures. Skilled PT remains indicated for this pt. Patient goals met 1,3,4,5,6,7,9 Goals Not Met 2,8,10 Plan Plan Continue as per initial POC Frequency of Therapy 1-2/week Duration of therapy 4 weeks Time and Billing Re-Eval Time 11 Re-Eval Billing Units 1 Charge for PT reassessment? No PHYSICIAN CERTIFICATION: I certify the specified therapy services for Juan Pablo Elena are required, authorized, and reviewed every 30 days.
== END 2024-03-30 23:59 | disposition home or self-care (01) ==
LOC: PT 09:00
PROVIDERS: Visit Provider Family Medicine
DX: M54.50 Low back pain, unspecified (principal)
CPT/HCPCS: 97110; 97140; 97530

== ENCOUNTER 2024-04-27 10:00 | Outpatient (RCR) | payer MEDICARE, BC, SELFPAY ==
--- NOTE | 2024-04-17 15:50 | HMH.RHREAS ---
Rehab Reassessment Rehab OP Re-assessment Start: 04/03/24 10:02 Freq: Status: Active Protocol: Document 04/17/24 15:02 OBDULIA (Rec: 04/17/24 15:48 OBDULIA [id number]) E-signed By Carlos Dyer, PT Oswestry Index Section 1 Pain Intensity The pain is mild and does not vary much Section 2 Personal Care (Washing,Dresing) change my way of washing or dressing in order to avoid pain Section 3 Lifting I can lift heavy weights without extra pain Section 4 Walking I have no pain when walking Section 5 Sitting I can sit in any chair for as long as I like Section 6 Standing I cannot stand more than 1 hour without increasing pain Section 7 Sleeping I get no pain in bed Section 8 Social Life My social life is normal and gives me no extra pain Section 9 Traveling I get no pain when traveling Section 10 Changing Degreee of Pain My pain fluctuates, but overall is definitely getting better Score and Risk Level Oswestry Sc 4 Oswestry Risk Level No Disability Rehab Re-assessment Subjective Subjective Pt reports that overall, he would estimate that he is approximately 60% improved. He reports that today is as close to normal as he has felt in a long time. He reports that he has noticed significant improvements in his ability to do housework, lift objects, complete his exercise routine, and do other activities of daily living. He reports that he continues to have difficulty doing activities where he has combined bending and twisting. He reports a pain of 2/10 throughout today's reassessment. Pt reports that he would like to continue PT and begin working toward discharge to a home exercise program. Objective Objective Notes DEANN: 4 TTP: 0/4 AROM: WFL (2/10 pain with bending) Strength: 5/5 to B hips/knees Assessment Progress Assessment Progressing as Expected Assessment Notes Pt has made significant progress and has nearly met all stated therapy goals. Pt would continue to benefit from skilled PT with an emphasis on preparing for discharge to home exercise program. Patient goals met 1,2,3,4,5,6,7,8,9 Goals Not Met 10 Plan Plan Continue as per initial POC. Prepare for discharge to [facility]. Frequency of Therapy 1-2/week Duration of therapy 4 weeks Time and Billing Re-Eval Time 10 Re-Eval Billing Units 0 Charge for PT reassessment? No PHYSICIAN CERTIFICATION: I certify the specified therapy services for Juan Pablokareem Gomez Kassy are required, authorized, and reviewed every 30 days.
== END 2024-04-27 23:59 | disposition home or self-care (01) ==
LOC: PT 10:00
PROVIDERS: Visit Provider Family Medicine
DX: M54.50 Low back pain, unspecified (principal)
CPT/HCPCS: 97110; 97140; 97530

== ENCOUNTER 2024-05-22 09:00 | Outpatient (RCR) | payer MEDICARE, BC, SELFPAY ==
--- NOTE | 2024-05-15 14:02 | HMH.RHREAS ---
Rehab Reassessment Rehab OP Re-assessment Start: 05/03/24 10:47 Freq: Status: Active Protocol: Document 05/15/24 13:57 RANJITHEIDI (Rec: 05/15/24 14:01 OBDULIA [id number]) E-signed By Carlos Dyer PT Rehab Re-assessment Subjective Subjective Pt reports he is approximately 75-80% improved at this date. Reports he went approximately two weeks without any pain but it worsened this weekend and would like to continue with PT a little longer. Objective Objective Notes DEANN: 4 (4 at last RA) Strength: 5/5 to B hips/knees TTP: 03/03 to Bilateral lumbar paraspinals ROM: Lumbar ROM 100% WNL - pain with bending Assessment Progress Assessment Progressing as Expected Assessment Notes Pt has progressed as expected. Pt continues to have slight tenderness in lumbar spine and pain with bending motion. Skilled PT remains indicated to ween to [facility]. Patient goals met 11/07 Plan Plan Plan to ween to home exercise program. Continue as per initial POC Frequency of Therapy 1/week Duration of therapy 4 weeks Time and Billing Re-Eval Time 10 Re-Eval Billing Units 0 Charge for PT reassessment? No PHYSICIAN CERTIFICATION: I certify the specified therapy services for Juan Pablo Elena are required, authorized, and reviewed every 30 days.
== END 2024-05-22 23:59 | disposition home or self-care (01) ==
LOC: PT 09:00
PROVIDERS: Visit Provider Family Medicine
DX: M54.50 Low back pain, unspecified (principal)
CPT/HCPCS: 97110; 97530

== ENCOUNTER 2024-06-04 08:00 | Outpatient (RCR) | payer MEDICARE, BC, SELFPAY | END 2024-06-04 23:59 | disposition home or self-care (01) | LOC: PT 08:00 | PROVIDERS: Visit Provider Family Medicine | DX: M54.50 Low back pain, unspecified (principal) | CPT/HCPCS: 97110; 97140; 97530 ==

== ENCOUNTER 2024-07-11 15:44 | Outpatient (CLI) | payer MEDICARE, BC, SELFPAY ==
--- NOTE | 2024-07-11 15:47 | MR_ITS ---
FINAL REPORT CLINICAL HISTORY: BACK PAIN W/RT SIDE SCIATICA COMPARISON: None FINDINGS: Multiplanar MR imaging of the lumbar spine was performed without contrast. On the sagittal T2-weighted images, there is abnormal decreased signal throughout the lumbar discs. There is moderate loss of height of the L4-5 and L5-S1 discs. The vertebrae are of normal height. The vertebral alignment is normal. L1-2: There is no significant canal stenosis or neural foraminal narrowing. L2-3: There is no significant canal stenosis or neural foraminal narrowing. L3-4: There is no significant canal stenosis or neural foraminal narrowing. L4-5: A mild to moderate annular bulge is present, with endplate hypertrophy eccentric to the right. There is moderate right and mild left neural foraminal narrowing. L5-S1: A mild to moderate annular bulge is present, with endplate hypertrophy eccentric to the left, producing moderate to severe left and moderate right neural foraminal narrowing. IMPRESSION: Lumbar degenerative change as described, most pronounced at the L4-5 and L5-S1 levels. Reviewed, Interpreted and Dictated by Hiram Lang MD Transcribed by Gayle Anthony Authenticated and [facility]
--- OUTSIDE RECORDS SUMMARY | 2024-07-11 15:47 | XMS_ITS | Data Portability ---
Author Organization [facility] ROBERT Whitaker HIGGINSON CLOSED Address [address] [facility] [address] [place] [address] Care Team Providers Care Environmental Director Name Role Phone JUDITH PEOPLES Primary Care Provider PATTIE TATUM OTHER ALEX HERNANDEZ OTHER JAVIER BAILEY OTHER Assessment No assessment recorded. Plan of Treatment Reminders Order Date Submit Date Provider Last Modified By Organization Details Last Modified Time Details Appointments RECHECK 2024 09:00A M JAVIER VANG MD Not available Not available Not available Lab urinalysi s panel, auto 2023 024 [facility], [address], [place], [address], 09/29/2023 12:46:12 PSA, serum or plasma 2023 024 [facility], [address], [address], [place], [address], 09/29/2023 12:46:13 PSA, serum or plasma 2022 023 [facility], [address], [address], [place], [address], 09/27/2022 16:52:54 urinalysi s panel, auto 2022 023 [facility], [address], [address], [place], [address], 09/27/2022 16:52:54 BMP, serum or plasma 2020 021 [facility], [address] [place], [address], 09/19/2020 16:30:29 urinalysi s panel, auto 2020 021 [facility], [address], [address], [place], [address], 09/19/2020 12:04:35 urinalysi s, dipstick, auto 2019 020 [facility], [address], [address], [place], [address], 08/30/2019 11:17:38 Referral None recorded. Procedures None recorded. Surgeries None recorded. Imaging None recorded. Medication Orders tamsulosi n 0.4 mg capsule 2023 024 [place] [id number], [address], [id number], 09/29/2023 12:46:17 sildenafi l (pulmonar y hypertens ion) 20 mg tablet 2023 024 [facility], [address] [place], [place], [address], 09/29/2023 12:46:16 tadalafil 20 mg tablet 2022 023 [facility], [address], [place], [address], 09/27/2022 16:53:00 Flomax 0.4 mg capsule 2021 022 [place] [facility][id number], [address], [id number], 09/30/2021 08:53:08 sildenafi l (pulmonar y hypertens ion) 20 mg tablet 2021 022 [place] [facility] #[id number], [address], [id number], 09/30/2021 08:53:12 sildenafi l (pulmonar y hypertens ion) 20 mg tablet 2020 021 [place] [facility] #[id number], [address], [id number], 09/19/2020 12:04:42 sildenafi l (pulmonar y hypertens ion) 20 mg tablet 2019 020 [email or web address] Not available 08/30/2019 11:17:51 Patient TargetsNo targets recorded. Patient Instructions Encounter Date Encounter Id Patient Instructions Last Modified By Organization Details Last Modified Time 08/30/2019 [id number] Erection Problems: Care Instructions [email or web address] Not available 08/30/2019 11:17:38 Reason for Referral None Reported. Results Created Date Observation Date Name Description Value Unit Range Abnormal Flag Note LastModifiedBy Organization Detail LastModifiedTime 09/20/1909/19/2020 urina lysis panel , auto Unknown Analyte Clean Catch Not Available [facility] [address], [place], [address], 09/19/2020 12:01:41 09/20/1909/19/2020 urina lysis panel , auto Unknown Analyte Yellow Not Available [facility] [address], [place], [address], 09/19/2020 12:01:41 09/20/19 21 09/19/2020 urina lysis panel , auto Unknown Analyte Clear Not Available [facility] [address], [place], [address], 09/19/2020 12:01:41 09/20/1909/19/2020 urina lysis panel , auto Unknown Analyte 1.015 Not Available [facility] [address], [place], [address], 09/19/2020 12:01:41 09/20/19 21 09/19/2020 urina lysis panel , auto Unknown Analyte 1.003- 1.035 Not Available [facility] [address], [place], [address], 09/19/2020 12:01:41 09/20/19 21 09/19/2020 urina lysis panel , auto Unknown Analyte 5.0 Not Available [facility] [address], [place], [address], 09/19/2020 12:01:41 09/20/19 21 09/19/2020 urina lysis panel , auto Unknown Analyte 5.0-8. 0 Not Available [facility] [address], [place], [address], 09/19/2020 12:01:41 09/20/19 21 09/19/2020 urina lysis panel , auto Unknown Analyte Negati ve Not Available [facility] [address], [place], [address], 09/19/2020 12:01:41 09/20/19 21 09/19/2020 urina lysis panel , auto Unknown Analyte Negati ve Not Available [facility] [address], [place], [address], 09/19/2020 12:01:41 09/20/19 21 09/19/2020 urina lysis panel , auto Unknown Analyte Negati ve Not Available [facility] [address], [place], [address], 09/19/2020 12:01:41 09/20/19 21 09/19/2020 urina lysis panel , auto Unknown Analyte Negati ve Not Available [facility] [address], [place], [address], 09/19/2020 12:01:41 09/20/19 21 09/19/2020 urina lysis panel , auto Unknown Analyte Trace Not Available [facility] [address], [place], [address], 09/19/2020 12:01:41 09/20/19 21 09/19/2020 urina lysis panel , auto Unknown Analyte Negati ve Not Available [facility] [address], [place], [address], 09/19/2020 12:01:41 09/20/19 21 09/19/2020 urina lysis panel , auto Unknown Analyte Normal Not Available [facility] [address], [place], [address], 09/19/2020 12:01:41 09/20/19 21 09/19/2020 urina lysis panel , auto Unknown Analyte Normal Not Available [facility] [address], [place], [address], 09/19/2020 12:01:41 09/20/19 21 09/19/2020 urina lysis panel , auto Unknown Analyte Negati ve Not Available [facility] [address], [place], [address], 09/19/2020 12:01:41 09/20/19 21 09/19/2020 urina lysis panel , auto Unknown Analyte Negati ve Not Available [facility] [address], [place], [address], 09/19/2020 12:01:41 09/20/19 21 09/19/2020 urina lysis panel , auto Unknown Analyte Normal Not Available [facility] [address], [place], [address], 09/19/2020 12:01:41 09/20/19 21 09/19/2020 urina lysis panel , auto Unknown Analyte Normal 1 mg/dl Not Available [facility] [address], [place], [address], 09/19/2020 12:01:41 09/20/19 21 09/19/2020 urina lysis panel , auto Unknown Analyte Negati ve Not Available [facility] [address], [place], [address], 09/19/2020 12:01:41 09/20/19 21 09/19/2020 urina lysis panel , auto Unknown Analyte Negati ve Not Available [facility] [address], [place], [address], 09/19/2020 12:01:41 09/20/19 21 09/19/2020 urina lysis panel , auto Unknown Analyte 50 Garrett/ul Not Available [facility] [address], [place], [address], 09/19/2020 12:01:41 09/20/19 21 09/19/2020 urina lysis panel , auto Unknown Analyte Negati ve Not Available [facility] [address], [place], [address], 09/19/2020 12:01:41 08/30/19 20 08/30/2019 urina lysis , dipst ick, auto Unknown Analyte Straw Not Available [facility] [address], [place], [address], 08/30/2019 11:06:39 08/30/19 20 08/30/2019 urina lysis , dipst ick, auto Unknown Analyte Clear Not Available [facility] [address], [place], [address], 08/30/2019 11:06:39 08/30/19 20 08/30/2019 urina lysis , dipst ick, auto Unknown Analyte 1.015 Not Available [facility] [address], [place], [address], 08/30/2019 11:06:39 08/30/19 20 08/30/2019 urina lysis , dipst ick, auto Unknown Analyte 1.003 - 1.035 Not Available [facility] [address], [place], [address], 08/30/2019 11:06:39 08/30/19 20 08/30/2019 urina lysis , dipst ick, auto Unknown Analyte 5.0 Not Available [facility] [address], [place], [address], 08/30/2019 11:06:39 08/30/19 20 08/30/2019 urina lysis , dipst ick, auto Unknown Analyte 5.0 - 8.0 Not Available [facility] [address], [place], [address], 08/30/2019 11:06:39 08/30/19 20 08/30/2019 urina lysis , dipst ick, auto Unknown Analyte 25 Francisco/ul Trace Not Available [facility] [address] [facility] [address], [place], [address], 08/30/2019 11:06:39 08/30/19 20 08/30/2019 urina lysis , dipst ick, auto Unknown Analyte Negati ve Not Available [facility] [address], [place], [address], 08/30/2019 11:06:39 08/30/19 20 08/30/2019 urina lysis , dipst ick, auto Unknown Analyte Negati ve Not Available [facility] [address], [place], [address], 08/30/2019 11:06:39 08/30/19 20 08/30/2019 urina lysis , dipst ick, auto Unknown Analyte Negati ve Not Available [facility] [address], [place], [address], 08/30/2019 11:06:39 08/30/19 20 08/30/2019 urina lysis , dipst ick, auto Unknown Analyte Trace Not Available [facility] [address], [place], [address], 08/30/2019 11:06:39 08/30/19 20 08/30/2019 urina lysis , dipst ick, auto Unknown Analyte Negati ve - Trace Not Available [facility] [address], [place], [address], 08/30/2019 11:06:39 08/30/19 20 08/30/2019 urina lysis , dipst ick, auto Unknown Analyte Normal Not Available [facility] [address], [place], [address], 08/30/2019 11:06:39 08/30/19 20 08/30/2019 urina lysis , dipst ick, auto Unknown Analyte Normal Not Available [facility] [address], [place], [address], 08/30/2019 11:06:39 08/30/19 20 08/30/2019 urina lysis , dipst ick, auto Unknown Analyte Negati ve Not Available [facility] [address], [place], [address], 08/30/2019 11:06:39 08/30/19 20 08/30/2019 urina lysis , dipst ick, auto Unknown Analyte Negati ve Not Available [facility] [address], [place], [address], 08/30/2019 11:06:39 08/30/19 20 08/30/2019 urina lysis , dipst ick, auto Unknown Analyte Normal Not Available [facility] [address], [place], [address], 08/30/2019 11:06:39 08/30/19 20 08/30/2019 urina lysis , dipst ick, auto Unknown Analyte Normal - 1mg/dl Not Available [facility] [address], [place], [address], 08/30/2019 11:06:39 08/30/19 20 08/30/2019 urina lysis , dipst ick, auto Unknown Analyte Negati ve Not Available [facility] [address], [place], [address], 08/30/2019 11:06:39 08/30/19 20 08/30/2019 urina lysis , dipst ick, auto Unknown Analyte Negati ve Not Available [facility] [address], [place], [address], 08/30/2019 11:06:39 08/30/19 20 08/30/2019 urina lysis , dipst ick, auto Unknown Analyte Negati ve Not Available [facility] [address], [place], [address], 08/30/2019 11:06:39 08/30/19 20 08/30/2019 urina lysis , dipst ick, auto Unknown Analyte Negati ve Not Available [facility] [address], [place], [address], 08/30/2019 11:06:39 08/30/19 20 08/30/2019 urina lysis , dipst ick, auto Unknown Analyte Clean Catch Not Available [facility] [address], [place], [address], 08/30/2019 11:06:39 08/30/19 20 08/30/2019 urina lysis , dipst ick, auto Unknown Analyte Automa aditya Not Available [facility] [address] [facility] [address], [place], [address], 08/30/2019 11:06:39 09/20/19 21 09/19/2020 BASIC METAB OLIC PANEL glucose 97 mg/dL 74-100 normal Not Available [facility] [address] [place] [address], [address], 09/19/2020 16:30:29 09/20/19 21 09/19/2020 BASIC METAB OLIC PANEL blood urea nitrogen 11 mg/dL 6-20 normal Not Available [facility] [address] [place] [address], [address], 09/19/2020 16:30:29 09/20/19 21 09/19/2020 BASIC METAB OLIC PANEL creatinine 1.15 mg/dL 0.70-1 .28 normal Not Available [facility] [address] [place] [address], [address], 09/19/2020 16:30:29 09/20/19 21 09/19/2020 BASIC METAB OLIC PANEL BUN/creatini ne ratio 10 (calc ) 10-20 normal Not Available [facility] [address] [place] [address], [address], 09/19/2020 16:30:29 09/20/19 21 09/19/2020 BASIC METAB OLIC PANEL sodium 138 mmol/ L 136-14 5 normal Not Available [facility] [address] [place] [address], [address], 09/19/2020 16:30:29 09/20/19 21 09/19/2020 BASIC METAB OLIC PANEL potassium 4.3 mmol/ L 3.4-5. 0 normal Not Available [facility] [address] [place] [address], [address], 09/19/2020 16:30:29 09/20/19 21 09/19/2020 BASIC METAB OLIC PANEL chloride 102 mmol/ L 98-107 normal Not Available [facility] [address] [place] [address], [address], 09/19/2020 16:30:29 09/20/19 21 09/19/2020 BASIC METAB OLIC PANEL carbon dioxide 25 mmol/ L 22-31 normal Not Available [facility] [address] [place] [address], [address], 09/19/2020 16:30:29 09/20/19 21 09/19/2020 BASIC METAB OLIC PANEL anion gap 11 (calc ) 7-25 normal Not Available [facility] [address] [place] [address], [address], 09/19/2020 16:30:29 09/20/19 21 09/19/2020 BASIC METAB OLIC PANEL calcium 9.5 mg/dL 8.6-10 .2 normal Not Available [facility] [address] [place] [address], [address], 09/19/2020 16:30:29 09/20/19 21 09/19/2020 BASIC METAB OLIC PANEL GFR 75 >= 60 normal Not Available [facility] [address] [place] [address], [address], 09/19/2020 16:30:29 09/20/19 21 09/19/2020 BASIC METAB OLIC PANEL GFR non- 65 >= 60 normal NOT E Chron ic kidne y disea se is defin ed as kidne y damag e for more than 3 month s or a GFR less than 60 mL/mi n/1.7 3 m2 for great er than 3 month s. This calcu latio n has not been valid ated in pregn ant women . For pedia tric patie nts refer to [facility] [employer] ation https :[email or web address] w.catalino early.o rg/pr ofess ional s/KDO QI/gf r_cal culat orPed Not Available [facility] [address] [place] [address], [address], 09/19/2020 16:30:29 09/28/19 23 09/27/2022 urina lysis panel , auto Unknown Analyte Clean Catch Not Available [facility] [address], [place], [address], 09/27/2022 16:04:49 09/28/19 23 09/27/2022 urina lysis panel , auto Unknown Analyte Yellow Not Available [facility] [address], [place], [address], 09/27/2022 16:04:49 09/28/19 23 09/27/2022 urina lysis panel , auto Unknown Analyte Clear Not Available [facility] [address], [place], [address], 09/27/2022 16:04:49 09/28/19 23 09/27/2022 urina lysis panel , auto Unknown Analyte 1.015 Not Available [facility] [address], [place], [address], 09/27/2022 16:04:49 09/28/19 23 09/27/2022 urina lysis panel , auto Unknown Analyte 1.003- 1.035 Not Available [facility] [address], [place], [address], 09/27/2022 16:04:49 09/28/19 23 09/27/2022 urina lysis panel , auto Unknown Analyte 5.0 Not Available [facility] [address], [place], [address], 09/27/2022 16:04:49 09/28/19 23 09/27/2022 urina lysis panel , auto Unknown Analyte 5.0-8. 0 Not Available [facility] [address], [place], [address], 09/27/2022 16:04:49 09/28/19 23 09/27/2022 urina lysis panel , auto Unknown Analyte Negati ve Not Available [facility] [address], [place], [address], 09/27/2022 16:04:49 09/28/19 23 09/27/2022 urina lysis panel , auto Unknown Analyte Negati ve Not Available [facility] [address], [place], [address], 09/27/2022 16:04:49 09/28/19 23 09/27/2022 urina lysis panel , auto Unknown Analyte Negati ve Not Available [facility] [address], [place], [address], 09/27/2022 16:04:49 09/28/19 23 09/27/2022 urina lysis panel , auto Unknown Analyte Negati ve Not Available [facility] [address], [place], [address], 09/27/2022 16:04:49 09/28/19 23 09/27/2022 urina lysis panel , auto Unknown Analyte Negati ve Not Available [facility] [address], [place], [address], 09/27/2022 16:04:49 09/28/19 23 09/27/2022 urina lysis panel , auto Unknown Analyte Negati ve Not Available [facility] [address], [place], [address], 09/27/2022 16:04:49 09/28/19 23 09/27/2022 urina lysis panel , auto Unknown Analyte Normal Not Available [facility] [address], [place], [address], 09/27/2022 16:04:49 09/28/19 23 09/27/2022 urina lysis panel , auto Unknown Analyte Normal Not Available [facility] [address], [place], [address], 09/27/2022 16:04:49 07/31/20 23 09/27/2022 urina lysis panel , auto Unknown Analyte Negati ve Not Available [facility] [address], [place], [address], 09/27/2022 16:04:49 09/28/19 23 09/27/2022 urina lysis panel , auto Unknown Analyte Negati ve Not Available [facility] [address], [place], [address], 09/27/2022 16:04:49 09/28/1909/27/2022 urina lysis panel , auto Unknown Analyte Normal Not Available [facility] [address], [place], [address], 09/27/2022 16:04:49 09/28/19 23 09/27/2022 urina lysis panel , auto Unknown Analyte Normal 1 mg/dl Not Available [facility] [address], [place], [address], 09/27/2022 16:04:49 09/28/19 23 09/27/2022 urina lysis panel , auto Unknown Analyte Negati ve Not Available [facility] [address], [place], [address], 09/27/2022 16:04:49 09/28/1909/27/2022 urina lysis panel , auto Unknown Analyte Negati ve Not Available [facility] [address], [place], [address], 09/27/2022 16:04:49 09/28/19 09/27/2022 urina lysis panel , auto Unknown Analyte Negati ve Not Available [facility] [address], [place], [address], 09/27/2022 16:04:49 09/28/19 23 09/27/2022 urina lysis panel , auto Unknown Analyte Negati ve Not Available [facility] [address], [place], [address], 09/27/2022 16:04:49 09/28/19 23 09/27/2022 PSA, serum or plasm a PSA 2.3 NG/mL 0.0 - 4.0 Not Available [facility] [address], [place], [address], 09/27/2022 14:42:44 09/29/19 24 09/29/2023 PSA, serum or plasm a PSA 2.3 NG/mL 0.0 - 4.0 Not Available [facility] [address], [place], [address], 09/29/2023 10:43:27 09/29/19 24 09/29/2023 urina lysis panel , auto Unknown Analyte Clean Catch Not Available [facility] [address], [place], [address], 09/29/2023 10:21:42 09/29/19 24 09/29/2023 urina lysis panel , auto Unknown Analyte Yellow Not Available [facility] [address], [place], [address], 09/29/2023 10:21:42 09/29/19 24 09/29/2023 urina lysis panel , auto Unknown Analyte Clear Not Available [facility] [address], [place], [address], 09/29/2023 10:21:42 09/29/19 24 09/29/2023 urina lysis panel , auto Unknown Analyte 1.005 Not Available [facility] [address], [place], [address], 09/29/2023 10:21:42 09/29/19 24 09/29/2023 urina lysis panel , auto Unknown Analyte 1.003- 1.035 Not Available [facility] [address], [place], [address], 09/29/2023 10:21:42 09/29/19 24 09/29/2023 urina lysis panel , auto Unknown Analyte 7.0 Not Available [facility] [address], [place], [address], 09/29/2023 10:21:42 09/29/19 24 09/29/2023 urina lysis panel , auto Unknown Analyte 5.0-8. 0 Not Available [facility] [address], [place], [address], 09/29/2023 10:21:42 09/29/19 24 09/29/2023 urina lysis panel , auto Unknown Analyte Negati ve Not Available [facility] [address], [place], [address], 09/29/2023 10:21:42 09/29/19 24 09/29/2023 urina lysis panel , auto Unknown Analyte Negati ve Not Available [facility] [address], [place], [address], 09/29/2023 10:21:42 09/29/19 24 09/29/2023 urina lysis panel , auto Unknown Analyte Negati ve Not Available [facility] [address], [place], [address], 09/29/2023 10:21:42 09/29/19 24 09/29/2023 urina lysis panel , auto Unknown Analyte Negati ve Not Available [facility] [address], [place], [address], 09/29/2023 10:21:42 09/29/19 24 09/29/2023 urina lysis panel , auto Unknown Analyte Negati ve Not Available [facility] [address], [place], [address], 09/29/2023 10:21:42 09/29/19 24 09/29/2023 urina lysis panel , auto Unknown Analyte Negati ve Not Available [facility] [address], [place], [address], 09/29/2023 10:21:42 09/29/19 24 09/29/2023 urina lysis panel , auto Unknown Analyte Normal Not Available [facility] [address], [place], [address], 09/29/2023 10:21:42 09/29/19 24 09/29/2023 urina lysis panel , auto Unknown Analyte Normal Not Available [facility] [address], [place], [address], 09/29/2023 10:21:42 09/29/19 24 09/29/2023 urina lysis panel , auto Unknown Analyte Negati ve Not Available [facility] [address], [place], [address], 09/29/2023 10:21:42 09/29/19 24 09/29/2023 urina lysis panel , auto Unknown Analyte Negati ve Not Available [facility] [address], [place], [address], 09/29/2023 10:21:42 09/29/19 24 09/29/2023 urina lysis panel , auto Unknown Analyte Normal Not Available [facility] [address], [place], [address], 09/29/2023 10:21:42 09/29/19 24 09/29/2023 urina lysis panel , auto Unknown Analyte Normal 1 mg/dl Not Available [facility] [address], [place], [address], 09/29/2023 10:21:42 09/29/19 24 09/29/2023 urina lysis panel , auto Unknown Analyte Negati ve Not Available [facility] [address], [place], [address], 09/29/2023 10:21:42 09/29/19 24 09/29/2023 urina lysis panel , auto Unknown Analyte Negati ve Not Available [facility] [address], [place], [address], 09/29/2023 10:21:42 09/29/19 24 09/29/2023 urina lysis panel , auto Unknown Analyte Negati ve Not Available [facility] [address], [place], [address], 09/29/2023 10:21:42 09/29/19 24 09/29/2023 urina lysis panel , auto Unknown Analyte Negati ve Not Available [facility] [address], [place], [address], 09/29/2023 10:21:42 Result Notes None recorded. 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 55129143 Active 2015 From Automated Load;Prov ider: Jack Harper;Sta tus: Active Not Available [facility] 7 07:39:25 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 JAVIER VANG JR, MD [address] [place] [address], [address] , [facility] 8 08:23:40 Primary erectile dysfuncti on 865296556 Active 2020 JAVIER VANG JR, MD [address] [place] [address], [address] , [facility] 1 11:57:02 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 846085766 Active 2014 From Automated Load;Prov ider: Jack Harper;Sta tus: Active Not Available [facility] 6 03:54:53 Primary malignant neoplasm of kidney 00675145 Active 2014 From Automated Load;Prov ider: Javier Vang Jr;St atus: Active Not Available [facility] 6 03:54:53 Lower urinary tract symptoms due to benign prostatic hypertrop hy 54527238408 101 Active 2014 From Automated Load;Prov ider: Javier Vang Jr;St atus: Active Not Available [facility] 6 03:54:53 Impotence Active 2014 From Automated Load;Prov ider: Javier Vang Jr;St atus: Active Not Available [facility] 6 03:54:53 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 Procedures Surgical History Date Name Laterality Status Provider Name and Address Organization Details Recorded Time 8 Post Void Residual; Ultrasound completed Murelene Kalyan [facility] 07/15/2017 10:13:37 8 LUMBAR DISCECTOMY WITH OPERATING ROOM MICROSCOPE (SURG) completed Alison Gutierrez [facility] 07/08/2017 08:08:25 1 Ears/Nose/Throa t Surgery completed Allyce Brandon [facility] 08/02/2016 08:42:15 0 Ears/Nose/Throa t Surgery completed Allyce Brandon [facility] 08/02/2016 08:42:31 9 Ears/Nose/Throa t Surgery completed Allyce Brandon [place] [facility] 08/02/2016 08:43:01 9 Ears/Nose/Throa t Surgery completed [facility] 08/02/2016 08:42:46 Nl rmvl lg staghorn calculus completed [facility] 08/02/2016 08:43:09 Cancer Surgery completed [facility] 08/02/2016 08:43:18 Imaging Results None recorded. Procedure Notes None recorded. Medical Equipment None Reported. Allergies Allergen ID Allergen Name Allergen Category Reaction Reaction Severity Criticality Documentation Date Start Date Code Code System Note Provider Name and Address Organization Details Recorded Time 484529 Augmentin medicatio n Not available Not available Not available 08/30/2019 92826 2 RxNorm Janny Ford [facility] 0 11:06:00 Medications Name Sig Start Date Stop Date Status Note LastModified by Organization Details LastModified Time Nexium 40 mg capsule,d elayed release Daily 09/21 completed Duration : 30 days;Elier quency: daily;Me dication Descript ion: esomepra zole; Dosage:1 ; Route:or al; refills: 0; Quantity :30 enteric coated capsule Not Available Not Available Not Available famotidin e 20 mg tablet Take 1 tablet twice a day by oral route. active Not Available Not Available No t Available tamsulosi n 0.4 mg capsule Take 1 capsule every day by oral route for 90 days. 2023 active Not Available Not Available Not Avai lable Cipro 500 mg tablet Take 1 tablet every 12 hours by oral route. 08/29 completed Not Available Not Available Not Available levothyro xine 150 mcg tablet active Medicati on Descript ion: levothyr oxine; Route:or al; refills: 0 Not Available Not Available Not Available Diovan 80 mg capsule Daily active Frequenc y: daily;Me dication Descript ion: valsarta n; Dosage:1 ; Route:or al; refills: 0; Quantity :30 capsule Not Available Not Available Not Available Viagra 100 mg tablet Take 1 tablet by oral route as directed . 2016 active Not Available Not Available Not Avai lable Percocet 5 mg-325 mg tablet Take 1 tablet every 6 hours by oral route as needed. 08/29 completed Not Available Not Available Not Available Lipitor 10 mg tablet Every night at bedtime active Frequenc y: qhs;Medi cation Descript ion: atorvast atin; Dosage:1 ; Route:or al; refills: 0; Quantity :30 tablet Not Available Not Available Not Available tadalafil 20 mg tablet use as needed for erection s no more than once daily 2022 active Not Available Not Available Not Avai lable sildenafi l (pulmonar y hypertens ion) 20 mg tablet Take 1 tablet as needed by oral route as directed . 2023 active Not Available Not Available Not Avai lable Vitals Date Recorded Body height Body mass index (BMI) Body weight Provider Name and Address Organization Details Last Updated DateTime 08/30/2019 175.26 cm 29.5 kg/m2 34309.47 g Janny Ford [facility] 08/30/2019 11:05:37 Date Recorded Body height Body mass index (BMI) Body weight Provider Name and Address Organization Details Last Updated DateTime 09/21/2021 175.26 cm 29.5 kg/m2 66963.47 g Valentina Garcia [facility] 09/21/2021 12:23:12 Date Recorded Body height Body mass index (BMI) Body weight Provider Name and Address Organization Details Last Updated DateTime 09/27/2022 175.26 cm 29.5 kg/m2 85103.47 g Brooke Blackman [facility] 09/27/2022 16:04:35 Date Recorded Body height Body mass index (BMI) Body weight Provider Name and Address Organization Details Last Updated DateTime 09/29/2023 175.26 cm 28.8 kg/m2 51916.51 g Clementina Slaughter [facility] 09/29/2023 10:05:52 Social History Question Answer Notes LastModified by Organizat ion Details LastModified Time Tobacco Smoking Status Former Smoker Gerard neville [facility] 08/02/2016 08:41:05 How Much Tobacco Do You Chew? None [email or web address] Information not available 05/17/2018 What Was The Date Of Your Most Recent Tobacco Screening? 05/17/2018 Information n ot available 04/17/2019 How Much Tobacco Do You Smoke? No [email or web address] Information not available 08/30/2019 Sex: Unknown Functional Status Question Answer Note LastModified by Organizat ion Details LastModified Time What is your level of alcohol consumption? Occasional asalva Information not available 08/02/2016 Mental Status None recorded. Family History Relationship Description Onset Age of this Age Resolved Age Notes LastModified by Organization Details LastModified Time Father Family history of malignant neoplasm lung asalva Not available 2016 08:40:59 Medical History Condition Response Hyperthyroidism Y Cancer Y Bleeding Disorder N Anesthesia Complications N Diabetes N Past Encounters Encounter ID Performer Location Encounter Start Date Encounter Closed Date Diagnosis/Indication Diagnosis SNOMED-CT Code Diagnosis ICD10 Code Diagnosis Note [id number] [facility] [address] 05/31/2016 19:36:36 05/31/2016 19:36:36 [id number] MD [address] [place] [address] 08/02/2016 08:36:34 08/02/2016 09:14:27 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; residual stable disease s/p surgery Dr Aldrich 07/2010- PET scan scheduled for 12/2016s/p FNA rt post node Dr Aldrich = lipoma History of malignant neoplasm of thyroid 057037582 Z85.850 h/o; HUSEYIN s/p total thyroidect tori & mod RND ; On Synthroid 150mcg Renal cell carcinoma 702 429282 C64.9 h/o, HUSEYIN since 05/2007 [id number] MD [address] [place] [address] 02/07/2017 14:15:28 02/07/2017 15:40:48 Malignant tumor of thyroid gland 441456736 C73 Metastatic papillary thyroid carcinoma status post total thyroidect tori and modified neck dissection 2008 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 9 Lower urin joaquin tract symptoms due to benign prostatic hypertrophy 8594981050 9101 N40.1 [id number] BUBBA DEMARCO MD [facility] [address] [place] [address] 03/31/2017 10:48:07 03/31/2017 12:51:21 Lumbar radiculopathy 546534670 M54.16 [id number] BUBBA DEMARCO MD [facility]OS[facility] [address] [place] [address] 06/06/2017 08:30:44 06/06/2017 10:48:04 Lumbar radiculopathy 234862672 M54.16 Minutes spent reviewing images, discussing the diagnosis and coordinati ng care: 25 min [id number] YUDELKA LOMBARDI MD [facility] [address] [place] [address] 06/28/2017 13:02:25 06/28/2017 13:48:54 Retention of urine 126134811 R33.9 Benign pro static hyperplasia with outflow obstruction 743636965 N40.1 History of malignant neoplasm of kidney 012833909 Z85.339 [id number] JAVIER VANG JR, MD [facility] [address] [place] [address] 06/30/2017 09:20:38 06/30/2017 10:22:48 Retention of urine 895039622 R33.9 Lower urin joaquin tract symptoms due to benign prostatic hypertrophy 1698766080 9101 N40.1 [id number] JAVIER VANG JR, MD [facility] [address] [facility] [address] [place] [address] 07/15/2017 09:47:12 07/15/2017 10:41:13 Lower urinary tract symptoms due to benign prostatic hypertrophy 3905634652 9101 N40.1 Retention of urine 13759 4002 R33.9 [id number] BUBBA DEMARCO MD [facility] [address] [facility] [address] [place] [address] 07/28/2017 10:18:25 08/02/2017 13:31:08 Postoperative care 898211602 Z48.89 [id number] JAVIER VANG JR, MD [facility] [address] [facility] [address] [place] [address] 05/17/2018 09:43:37 05/17/2018 10:12:19 Lower urinary tract symptoms due to benign prostatic hypertrophy 0618481919 9101 N40.1 Primary ma lignant neoplasm of kidney 42350538 C64.9 Impotence 740092726 N52. 9 [id number] JAVIER VANG JR, MD [facility] [address] [facility] [address] [place] [address] 08/30/2019 10:54:20 08/30/2019 11:17:34 Impotence 235996863 N52.9 Primary ma lignant neoplasm of kidney 89901683 C64.9 Lower urin joaquin tract symptoms due to benign prostatic hypertrophy 2571089351 9101 N40.1 [id number] JAVIER VANG JR, MD [facility] [address] [facility] [address] [place] [address] 09/19/2020 11:07:09 09/19/2020 12:08:07 Benign prostatic hyperplasia with outflow obstruction 958486216 N40.1 Primary er ectile dysfunction 034668458 N52.9 Impotence 626731298 N52. 9 [id number] JAVIER VANG JR, MD [facility] [address] [place] [address] 09/21/2021 09:53:55 09/21/2021 10:57:47 Benign prostatic hyperplasia with outflow obstruction 267724685 N40.1 Impotence 738056707 N52. 9 [id number] JAVIER VANG JR, MD [facility] [address] [place] [address] 09/27/2022 09:30:16 09/27/2022 10:00:51 Lower urinary tract symptoms due to benign prostatic hypertrophy 7975878758 9101 N40.1 Primary er ectile dysfunction 407488703 N52.9 ,. [id number] JAVIER VANG JR, MD [facility] [address] [address] 09/29/2023 09:37:18 09/29/2023 10:28:08 Lower urinary tract symptoms due to benign prostatic hypertrophy 6985725206 9101 N40.1 Impotence 366975950 N52. 9 Primary ma lignant neoplasm of kidney 99187338 C64.9 Health Concerns Section Related Observation LastModified by Organization Detai ls LastModified Time None Recorded Concern Status LastModified by Organization Details LastModified Time None Recorded Advance Directives Directive None Recorded Payers Insurance Date Sequence Insurance Name Policy Number Policy Jacobs Covered Member ID Jacobs Member ID Guarantor Name 2020 1 [facility] (PPO) [id number] Abad Cindi [id number] Juan Pablo Cindi 09/29/2023 1 [place] Abad Stubbs Cindi [id number] Juan Pablo Cindi 10/06/2023 2 [place] [id number] Juan Pablo Stubbs Cindi [id number] Juan Pablo Cindi 2020 1 [facility] [id number] Abad Cindi [id number] Juan Pablo Cindi Notes Date Note Type Note Provider Name and Address Organization Details Recorded Time 08/30/2019 text/html Patient is in to day for follow-up of renal cell carcinoma. He underwent left radical nephrectomy June 20, 2007. He has not had any evidence of recurrent disease since that time. He follows with oncology for imaging. The patient also follows with ENT for medullary carcinoma of the thyroid. He does have erectile dysfunction which is treated successfully with Sildenafil. The patient does have BPH treated with tamsulosin. PSA is 0.79 in 2019 Patient did have acute urinary retention following back surgery in 2018. This is now resolved and is voiding spontaneously without significant lower urinary tract symptoms. JAVIER VANG JR, MD [facility] [place], [address], [facility] 08/30/2019 13:11:17 09/19/2020 text/html Patient is in to day for follow-up of renal cell carcinoma. He underwent left radical nephrectomy June 20, 2007. He has not had any evidence of recurrent disease since that time. He follows with oncology for imaging. The patient also follows with ENT for medullary carcinoma of the thyroid. He does have erectile dysfunction which is treated successfully with Sildenafil. The patient does have BPH treated with tamsulosin. PSA is 0.79 in 2019 Patient did have acute urinary retention following back surgery in 2018. This is now resolved and is voiding spontaneously without significant lower urinary tract symptoms. JAVIER VANG JR, MD [address] [place] [address], [address], [facility] 09/21/2020 20:08:42 09/21/2021 text/html Patient is in to day for follow-up of renal cell carcinoma. He underwent left radical nephrectomy June 20, 2007. He has not had any evidence of recurrent disease since that time. He follows with oncology for imaging. The patient also follows with ENT for medullary carcinoma of the thyroid. He does have erectile dysfunction which is treated successfully with Sildenafil. The patient does have BPH treated with tamsulosin. PSA is 0.79 in 2019 Patient did have acute urinary retention following back surgery in 2018. This is now resolved and is voiding spontaneously without significant lower urinary tract symptoms. [place], [address], [facility] 10/03/2021 17:32:10 09/27/2022 text/html Patient is in to day for follow-up of renal cell carcinoma. He underwent left radical nephrectomy June 20, 2007. He has not had any evidence of recurrent disease since that time. He follows with oncology for imaging. The patient also follows with ENT for medullary carcinoma of the thyroid. He does have erectile dysfunction which is treated successfully with Sildenafil. The patient does have BPH treated previously with tamsulosin. Now not on meds. Patient did have acute urinary retention following back surgery in 2018. This is now resolved and is voiding spontaneously without significant lower urinary tract symptoms. JAVIER VANG JR, MD [address] [place] [address], [address], [facility] 10/03/2022 15:27:19 09/29/2023 text/html Patient is in to day for follow-up of renal cell carcinoma. He underwent left radical nephrectomy June 20, 2007. He has not had any evidence of recurrent disease since that time. He follows with oncology for imaging. The patient also follows with ENT for medullary carcinoma of the thyroid. He does have erectile dysfunction which is treated successfully with Sildenafil. The patient does have BPH treated previously with tamsulosin. Now not on meds. Patient did have acute urinary retention following back surgery in 2018. This is now resolved and is voiding spontaneously without significant lower urinary tract symptoms. JAVIER VANG JR, MD [address] [place] [address], [id number], [facility] 10/03/2023 07:26:45
--- OUTSIDE RECORDS SUMMARY | 2024-07-11 15:47 | XMS_ITS ---
Author Organization Unknown Medications Date Medication Dosage DosageUnit StartDate StopDate StopReason Active DoseQuantity DoseUnit Dispense DispenseUnit Refills NdcCode DrugCode PharmacyId IsPrescription MappedMedication Srcstatus 03/12 00:00 :00 amLODIPine Besylate 2.5 MG Tablet 12/30/2022 00:00:00 1 30 4 [id number] 8 305 P Not Taking 02/19 00:00 :00 amLODIPine Besylate 5 MG Tablet 1 90 Tablet 0 [id number] 710 Start 02/19 00:00 :00 amLODIPine Besylate 5 MG Tablet 0 90 Tablet 0 [id number] 003 Stop 01/29 00:00 :00 amLODIPine Besylate 5 MG Tablet 1 90 Tablet 0 [id number] 003 Not Taking 01/29 00:00 :00 amLODIPine Besylate 2.5 MG Tablet 12/30/2022 00:00:00 1 30 4 [id number] 8 305 P Not Taking 12/28 00:00 :00 amLODIPine Besylate 5 MG Tablet 1 90 Tablet 0 [id number] 003 Taking 12/28 00:00 :00 amLODIPine Besylate 2.5 MG Tablet 12/30/2022 00:00:00 1 30 4 [id number] 8 305 P Not Taking 11/17 00:00 :00 amLODIPine Besylate 5 MG Tablet 1 90 Tablet 0 [id number] 003 Start 11/17 00:00 :00 amLODIPine Besylate 5 MG Tablet 0 90 Tablet 0 [id number] 003 Stop 11/13 00:00 :00 amLODIPine Besylate 5 MG Tablet 1 90 Tablet 0 [id number] 003 Taking 11/13 00:00 :00 amLODIPine Besylate 2.5 MG Tablet 12/30/2022 00:00:00 1 30 4 [id number] 8 305 P Not Taking 09/21 00:00 :00 amLODIPine Besylate 5 MG Tablet 1 90 Tablet 0 [id number] 003 Taking 09/21 00:00 :00 amLODIPine Besylate 2.5 MG Tablet 12/30/2022 00:00:00 1 30 4 [id number] 8 305 P Not Taking 09/12 00:00 :00 amLODIPine Besylate 5 MG Tablet 1 90 Tablet 0 [id number] 003 Taking 09/12 00:00 :00 amLODIPine Besylate 2.5 MG Tablet 12/30/2022 00:00:00 1 30 4 [id number] 8 305 P Not Taking 05/23 00:00 :00 amLODIPine Besylate 5 MG Tablet 1 90 Tablet 0 [id number] 003 Start 05/23 00:00 :00 amLODIPine Besylate 5 MG Tablet 0 90 Tablet 1 [id number] 710 Stop 04/25 00:00 :00 amLODIPine Besylate 5 MG Tablet 01/24/2023 00:00:00 1 90 Tablet 1 53348 716 710 P Taking 04/25 00:00 :00 amLODIPine Besylate 2.5 MG Tablet 12/30/2022 00:00:00 1 30 4 [id number] 8 305 P Not Taking 01/24 00:00 :00 amLODIPine Besylate 2.5 MG Tablet 12/30/2022 00:00:00 1 30 4 [id number] 8 305 P Unknown Status 01/24 00:00 :00 amLODIPine Besylate 5 MG Tablet 01/24/2023 00:00:00 1 90 Tablet 1 91346 716 710 P Start 01/24 00:00 :00 amLODIPine Besylate 2.5 MG Tablet 12/30/2022 00:00:00 1 30 4 [id number] 8 305 P Taking 12/30 00:00 :00 amLODIPine Besylate 2.5 MG Tablet 12/30/2022 00:00:00 1 30 4 [id number] 8 305 P Start 03/12 00:00 :00 Ammonium Lactate 5 % Lotion 10/28/2022 00:00:00 1 45 Gram 2 [id number] 8 605 P Taking 01/29 00:00 :00 Ammonium Lactate 5 % Lotion 10/28/2022 00:00:00 1 45 Gram 2 [id number] 8 605 P Taking 12/28 00:00 :00 Ammonium Lactate 5 % Lotion 10/28/2022 00:00:00 1 45 Gram 2 [id number] 8 605 P Taking 11/13 00:00 :00 Ammonium Lactate 5 % Lotion 10/28/2022 00:00:00 1 45 Gram 2 [id number] 8 605 P Taking 09/21 00:00 :00 Ammonium Lactate 5 % Lotion 10/28/2022 00:00:00 1 45 Gram 2 [id number] 8 605 P Taking 09/12 00:00 :00 Ammonium Lactate 5 % Lotion 10/28/2022 00:00:00 1 45 Gram 2 [id number] 8 605 P Taking 04/25 00:00 :00 Ammonium Lactate 5 % Lotion 10/28/2022 00:00:00 1 45 Gram 2 [id number] 8 605 P Taking 01/24 00:00 :00 Ammonium Lactate 5 % Lotion 10/28/2022 00:00:00 1 45 Gram 2 [id number] 8 605 P Taking 12/30 00:00 :00 Ammonium Lactate 5 % Lotion 10/28/2022 00:00:00 1 45 Gram 2 [id number] 8 605 P Taking 10/28 00:00 :00 Ammonium Lactate 5 % Lotion 10/28/2022 00:00:00 1 45 Gram 2 [id number] 8 605 P Start 04/09 00:00 :00 Atorvastati n Calcium 10 MG Tablet 1 90 Tablet 0 [id number] 005 Start 04/09 00:00 :00 Atorvastati n Calcium 10 MG Tablet 0 90 Tablet 1 [id number] 005 Stop 03/12 00:00 :00 Atorvastati n Calcium 10 MG Tablet 1 90 Tablet 1 [id number] 005 Taking 01/29 00:00 :00 Atorvastati n Calcium 10 MG Tablet 1 90 Tablet 1 [id number] 005 Taking 12/28 00:00 :00 Atorvastati n Calcium 10 MG Tablet 1 90 Tablet 1 [id number] 005 Taking 11/13 00:00 :00 Atorvastati n Calcium 10 MG Tablet 1 90 Tablet 1 [id number] 005 Taking 09/21 00:00 :00 Atorvastati n Calcium 10 MG Tablet 1 90 Tablet 1 [id number] 005 Taking 09/12 00:00 :00 Atorvastati n Calcium 10 MG Tablet 1 90 Tablet 1 [id number] 005 Taking 07/25 00:00 :00 Atorvastati n Calcium 10 MG Tablet 1 90 Tablet 1 [id number] 005 Start 07/25 00:00 :00 Atorvastati n Calcium 10 MG Tablet 0 90 Tablet 1 [id number] 005 Stop 04/25 00:00 :00 Atorvastati n Calcium 10 MG Tablet 1 90 Tablet 1 [id number] 005 Taking 01/24 00:00 :00 Atorvastati n Calcium 10 MG Tablet 1 90 Tablet 1 [id number] 005 Taking 12/30 00:00 :00 Atorvastati n Calcium 10 MG Tablet 1 90 Tablet 1 [id number] 005 Taking 10/28 00:00 :00 Atorvastati n Calcium 10 MG Tablet 1 90 Tablet 1 [id number] 005 Taking 10/27 00:00 :00 Atorvastati n Calcium 10 MG Tablet 1 90 Tablet 1 [id number] 005 Start 10/27 00:00 :00 Atorvastati n Calcium 10 MG Tablet 0 90 2 000 49676 610 Stop 10/14 00:00 :00 Atorvastati n Calcium 10 MG Tablet 1 90 2 000 24605 610 Taking 07/31 00:00 :00 Atorvastati n Calcium 10 MG Tablet 1 90 2 000 43194 610 Taking 06/30 00:00 :00 ATORVASTATI N CALCIUM 10 mg tablet 1 90 2 597 25514 501 Taking 04/30 00:00 :00 ATORVASTATI N CALCIUM 10 mg tablet 1 90 2 597 80027 501 Start 04/30 00:00 :00 ATORVASTATI N CALCIUM 10 mg tablet 0 90 1 597 33891 501 Stop 02/01 00:00 :00 ATORVASTATI N CALCIUM 10 mg tablet 1 90 1 597 89895 501 Start 02/01 00:00 :00 ATORVASTATI N CALCIUM 10 mg tablet 0 90 1 597 89766 501 Stop 12/30 00:00 :00 ATORVASTATI N CALCIUM 10 mg tablet 1 90 1 597 53410 501 Taking 11/03 00:00 :00 ATORVASTATI N CALCIUM 10 mg tablet 1 90 1 597 02726 501 Start 11/03 00:00 :00 ATORVASTATI N CALCIUM 10 mg tablet 0 90 1 597 22002 501 Stop 10/21 00:00 :00 ATORVASTATI N CALCIUM 10 mg tablet 1 90 1 597 54116 501 Taking 10/05 00:00 :00 ATORVASTATI N CALCIUM 10 mg tablet 1 90 1 597 36513 501 Taking 08/19 00:00 :00 ATORVASTATI N CALCIUM 10 mg tablet 1 90 1 597 73339 501 Taking 08/03 00:00 :00 ATORVASTATI N CALCIUM 10 mg tablet 1 90 1 597 06641 501 Start 08/03 00:00 :00 ATORVASTATI N CALCIUM 10 mg tablet 0 90 1 597 18320 501 Stop 10/28 00:00 :00 Colchicine 0.6 MG Tablet 0 43954 000 201 Stop 10/28 00:00 :00 Colchicine 0.6 MG Tablet 1 90 Tablet 1 41102731 201 Taking 10/15 00:00 :00 Colchicine 0.6 MG Tablet 1 90 Tablet 1 59253041 201 Start 10/15 00:00 :00 Colchicine 0.6 MG Tablet 0 90 0 63867 200 801 Stop 10/14 00:00 :00 Colchicine 0.6 MG Tablet 1 90 0 59487 200 801 Start 10/14 00:00 :00 Colchicine 0.6 MG Tablet 0 30 1 37096 200 801 Stop 10/14 00:00 :00 Colchicine 0.6 MG Tablet 10/14/2022 00:00:00 1 30 1 [id number] 0 801 P Start 12/30 00:00 :00 CYCLOBENZAP RINE HYDROCHLORI DE 10 mg tablet 08/19/2021 00:00:00 1 10 1 [id number] 2 201 P Not Taking 10/21 00:00 :00 CYCLOBENZAP RINE HYDROCHLORI DE 10 mg tablet 08/19/2021 00:00:00 1 10 1 [id number] 2 201 P Not Taking 10/05 00:00 :00 CYCLOBENZAP RINE HYDROCHLORI DE 10 mg tablet 08/19/2021 00:00:00 1 10 1 [id number] 2 201 P Not Taking 08/19 00:00 :00 CYCLOBENZAP RINE HYDROCHLORI DE 10 mg tablet 08/19/2021 00:00:00 1 10 1 [id number] 2 201 P Start 05/08 00:00 :00 Famotidine 40 MG Tablet 1 90 Tablet 0 3 5848549 801 Start 05/08 00:00 :00 Famotidine 40 MG Tablet 0 30 0 140628 72 960 Stop 05/08 00:00 :00 Famotidine 40 MG Tablet 05/08/2024 00:00:00 1 30 0 [id number] 2 960 P Start 01/29 00:00 :00 Famotidine 40 MG Tablet 1 90 1 703294 72 960 Not Taking 12/28 00:00 :00 Famotidine 40 MG Tablet 1 90 1 808052 72 960 Not Taking 11/13 00:00 :00 Famotidine 40 MG Tablet 1 90 1 655337 72 960 Not Taking 09/25 00:00 :00 Famotidine 40 MG Tablet 1 90 1 548776 72 960 Start 09/25 00:00 :00 Famotidine 40 MG Tablet 0 90 1 397156 72 960 Stop 09/21 00:00 :00 Famotidine 40 MG Tablet 1 90 1 [id number] 72 960 Taking 09/12 00:00 :00 Famotidine 40 MG Tablet 1 90 1 033801 72 960 Taking 04/25 00:00 :00 Famotidine 40 MG Tablet 1 90 1 [id number] 72 960 Taking 01/24 00:00 :00 Famotidine 40 MG Tablet 1 90 1 [id number] 72 960 Taking 12/31 00:00 :00 Famotidine 40 MG Tablet 1 90 1 996616 72 960 Start 12/31 00:00 :00 Famotidine 40 MG Tablet 0 90 1 455243 72 960 Stop 12/30 00:00 :00 Famotidine 40 MG Tablet 1 90 1 133453 72 960 Taking 10/28 00:00 :00 Famotidine 40 MG Tablet 1 90 1 [id number] 72 960 Taking 10/14 00:00 :00 Famotidine 40 MG Tablet 1 90 1 245950 72 960 Taking 08/10 00:00 :00 Famotidine 40 MG Tablet 1 90 1 403992 72 960 Start 08/10 00:00 :00 Famotidine 40 MG Tablet 0 90 1 932164 72 960 Stop 07/31 00:00 :00 Famotidine 40 MG Tablet 1 90 1 675027 72 960 Continue 06/30 00:00 :00 FAMOTIDINE 40 mg tablet 1 90 1 519136 72 960 Continue 06/30 00:00 :00 FAMOTIDINE 40 mg tablet 1 30 3 [id number] 72 960 Taking 05/03 00:00 :00 FAMOTIDINE 40 mg tablet 1 30 3 [id number] 72 960 Start 05/03 00:00 :00 FAMOTIDINE 40 mg tablet 0 30 5 [id number] 72 960 Stop 12/30 00:00 :00 FAMOTIDINE 40 mg tablet 1 30 5 100109 72 960 Taking 11/30 00:00 :00 FAMOTIDINE 40 mg tablet 1 30 5 134992 72 960 Start 11/30 00:00 :00 FAMOTIDINE 40 mg tablet 0 30 5 556747 72 960 Stop 10/21 00:00 :00 FAMOTIDINE 40 mg tablet 1 30 5 941963 72 960 Taking 10/05 00:00 :00 FAMOTIDINE 40 mg tablet 1 30 5 [id number] 72 960 Taking 08/19 00:00 :00 FAMOTIDINE 40 mg tablet 1 30 5 253530 72 960 Taking 07/07 00:00 :00 FAMOTIDINE 40 mg tablet 1 30 5 232191 72 960 Start 07/07 00:00 :00 FAMOTIDINE 40 mg tablet 0 30 3 [id number] 72 960 Stop 03/12 00:00 :00 Farxiga 5 MG Tablet 10/21/2021 00:00:00 1 30 3 [id number] 0 530 P Not Taking 01/29 00:00 :00 Farxiga 5 MG Tablet 10/21/2021 00:00:00 1 30 3 [id number] 0 530 P Not Taking 12/28 00:00 :00 Farxiga 5 MG Tablet 10/21/2021 00:00:00 1 30 3 [id number] 0 530 P Not Taking 11/13 00:00 :00 Farxiga 5 MG Tablet 10/21/2021 00:00:00 1 30 3 [id number] 0 530 P Not Taking 09/21 00:00 :00 Farxiga 5 MG Tablet 10/21/2021 00:00:00 1 30 3 [id number] 0 530 P Not Taking 09/12 00:00 :00 Farxiga 5 MG Tablet 10/21/2021 00:00:00 1 30 3 [id number] 0 530 P Not Taking 04/25 00:00 :00 Farxiga 5 MG Tablet 10/21/2021 00:00:00 1 30 3 [id number] 0 530 P Not Taking 01/24 00:00 :00 Farxiga 5 MG Tablet 10/21/2021 00:00:00 1 30 3 [id number] 0 530 P Not Taking 12/30 00:00 :00 Farxiga 5 MG Tablet 10/21/2021 00:00:00 1 30 3 [id number] 0 530 P Not Taking 10/28 00:00 :00 Farxiga 5 MG Tablet 10/21/2021 00:00:00 1 30 3 [id number] 0 530 P Not Taking 10/14 00:00 :00 Farxiga 5 MG Tablet 10/21/2021 00:00:00 1 30 3 [id number] 0 530 P Not Taking 07/31 00:00 :00 Farxiga 5 MG Tablet 10/21/2021 00:00:00 1 30 3 [id number] 0 530 P Not Taking 06/30 00:00 :00 FARXIGA 5 mg tablet 10/21/2021 00:00:00 1 30 3 [id number] 0 530 P Not Taking 12/30 00:00 :00 FARXIGA 5 mg tablet 10/21/2021 00:00:00 1 30 3 [id number] 0 530 P Not Taking 10/21 00:00 :00 FARXIGA 5 mg tablet 10/21/2021 00:00:00 1 30 3 [id number] 0 530 P Start 06/30 00:00 :00 FLONASE 50 mcg/inh spray 1 1 2 01930137 602 Taking 02/12 00:00 :00 FLONASE 50 mcg/inh spray 1 1 2 91703179 602 Start 02/12 00:00 :00 FLONASE 50 mcg/inh spray 0 1 2 61069508 602 Stop 02/12 00:00 :00 FLONASE 50 mcg/inh spray 1 1 2 27299849 602 Start 02/12 00:00 :00 FLONASE 50 mcg/inh spray 0 1 2 96908079 602 Stop 02/12 00:00 :00 FLONASE 50 mcg/inh spray 1 1 2 80043399 602 Start 02/12 00:00 :00 FLONASE 50 mcg/inh spray 0 1 2 18531069 602 Stop 12/30 00:00 :00 FLONASE 50 mcg/inh spray 03/13/2019 00:00:00 1 1 2 [id number] 7 602 P Not Taking 10/21 00:00 :00 FLONASE 50 mcg/inh spray 03/13/2019 00:00:00 1 1 2 [id number] 7 602 P Not Taking 10/05 00:00 :00 FLONASE 50 mcg/inh spray 03/13/2019 00:00:00 1 1 2 [id number] 7 602 P Not Taking 08/19 00:00 :00 FLONASE 50 mcg/inh spray 03/13/2019 00:00:00 1 1 2 [id number] 7 602 P Not Taking 10/24 00:00 :00 Flonase Allergy Relief 50 MCG/ACT Suspension 0 1 2 2227220 7 602 Stop 09/21 00:00 :00 Flonase Allergy Relief 50 MCG/ACT Suspension 1 1 2 6254607 7 602 P Taking 09/12 00:00 :00 Flonase Allergy Relief 50 MCG/ACT Suspension 1 1 2 4817936 7 602 P Taking 04/25 00:00 :00 Flonase Allergy Relief 50 MCG/ACT Suspension 1 1 2 9295670 7 602 P Taking 02/07 00:00 :00 Flonase Allergy Relief 50 MCG/ACT Suspension 1 1 2 9960533 7 602 P Unknown Status 01/24 00:00 :00 Flonase Allergy Relief 50 MCG/ACT Suspension 1 1 2 2456742 7 602 Taking 12/30 00:00 :00 Flonase Allergy Relief 50 MCG/ACT Suspension 1 1 2 2559949 7 602 Taking 10/28 00:00 :00 Flonase Allergy Relief 50 MCG/ACT Suspension 1 1 2 5419813 7 602 Taking 10/14 00:00 :00 Flonase Allergy Relief 50 MCG/ACT Suspension 1 1 2 7252376 7 602 Taking 07/31 00:00 :00 Flonase Allergy Relief 50 MCG/ACT Suspension 1 1 2 1958952 7 602 Taking 05/02 00:00 :00 Fluticasone Propionate 50 MCG/ACT Suspension 1 16 Gram 0 05344 327 099 Start 05/02 00:00 :00 Fluticasone Propionate 50 MCG/ACT Suspension 0 16 Gram 0 39684 327 099 Stop 03/24 00:00 :00 Fluticasone Propionate 50 MCG/ACT Suspension 1 16 Gram 0 02251 327 099 Start 03/24 00:00 :00 Fluticasone Propionate 50 MCG/ACT Suspension 0 16 Gram 2 55763 327 099 Stop 03/12 00:00 :00 Fluticasone Propionate 50 MCG/ACT Suspension 1 16 Gram 2 52664 327 099 Taking 01/29 00:00 :00 Fluticasone Propionate 50 MCG/ACT Suspension 1 16 Gram 2 75902 327 099 Taking 12/28 00:00 :00 Fluticasone Propionate 50 MCG/ACT Suspension 1 16 Gram 2 40027 327 099 Taking 11/13 00:00 :00 Fluticasone Propionate 50 MCG/ACT Suspension 1 16 Gram 2 94916 327 099 Taking 10/24 00:00 :00 Fluticasone Propionate 50 MCG/ACT Suspension 1 16 Gram 2 90833 327 099 Start 03/12 00:00 :00 Gabapentin 100 MG Capsule 12/29/2023 00:00:00 1 120 3 [id number] 6 561 P Taking 01/29 00:00 :00 Gabapentin 100 MG Capsule 12/29/2023 00:00:00 1 120 3 8620640 6 561 P Taking 12/28 00:00 :00 Gabapentin 100 MG Capsule 12/29/2023 00:00:00 1 120 3 [id number] 6 561 P Unknown Status 12/28 00:00 :00 Gabapentin 100 MG Capsule 12/29/2023 00:00:00 1 120 3 9714780 6 561 P Unknown Status 12/28 00:00 :00 Gabapentin 100 MG Capsule 07/20/2023 00:00:00 1 120 3 [id number] 6 561 P Taking 11/13 00:00 :00 Gabapentin 100 MG Capsule 07/20/2023 00:00:00 1 120 3 [id number] 6 561 P Taking 09/21 00:00 :00 Gabapentin 100 MG Capsule 07/20/2023 00:00:00 1 120 3 [id number] 6 561 P Taking 09/12 00:00 :00 Gabapentin 100 MG Capsule 07/20/2023 00:00:00 1 120 3 [id number] 6 561 P Taking 07/18 00:00 :00 Gabapentin 100 MG Capsule 07/20/2023 00:00:00 1 120 3 [id number] 6 561 P Unknown Status 04/25 00:00 :00 Gabapentin 100 MG Capsule 02/10/2023 00:00:00 1 120 3 [id number] 6 561 P Taking 02/09 00:00 :00 Gabapentin 100 MG Capsule 02/10/2023 00:00:00 1 120 3 [id number] 6 561 P Unknown Status 01/24 00:00 :00 Gabapentin 100 MG Capsule 07/23/2022 00:00:00 1 120 4 [id number] 6 561 P Taking 12/30 00:00 :00 Gabapentin 100 MG Capsule 07/23/2022 00:00:00 1 120 4 [id number] 6 561 P Taking 10/28 00:00 :00 Gabapentin 100 MG Capsule 07/23/2022 00:00:00 1 120 4 [id number] 6 561 P Taking 10/14 00:00 :00 Gabapentin 100 MG Capsule 07/23/2022 00:00:00 1 120 4 [id number] 6 561 P Taking 07/31 00:00 :00 Gabapentin 100 MG Capsule 07/23/2022 00:00:00 1 120 4 [id number] 6 561 P Unknown Status 07/23 00:00 :00 GABAPENTIN 100 mg capsule 07/23/2022 00:00:00 1 120 4 [id number] 6 561 P Unknown Status 06/30 00:00 :00 GABAPENTIN 100 mg capsule 02/08/2022 00:00:00 1 120 3 [id number] 6 561 P Taking 02/08 00:00 :00 GABAPENTIN 100 mg capsule 02/08/2022 00:00:00 1 120 3 [id number] 6 561 P Unknown Status 12/30 00:00 :00 GABAPENTIN 100 mg capsule 09/15/2021 00:00:00 1 [id number] 6 561 P Taking 10/21 00:00 :00 GABAPENTIN 100 mg capsule 09/15/2021 00:00:00 1 [id number] 6 561 P Taking 10/05 00:00 :00 GABAPENTIN 100 mg capsule 09/15/2021 00:00:00 1 [id number] 6 561 P Continue 10/05 00:00 :00 GABAPENTIN 100 mg capsule 09/15/2021 00:00:00 1 120 3 [id number] 6 561 P Taking 09/14 00:00 :00 GABAPENTIN 100 mg capsule 09/15/2021 00:00:00 1 120 3 [id number] 6 561 P Unknown Status 08/19 00:00 :00 GABAPENTIN 100 mg capsule 04/22/2021 00:00:00 1 120 3 [id number] 6 561 Taking 09/21 00:00 :00 hydroCHLORO thiazide 25 MG Tablet 09/13/2023 00:00:00 0 4667156 8 360 P Stop 09/21 00:00 :00 hydroCHLORO thiazide 25 MG Tablet 09/13/2023 00:00:00 1 30 4 [id number] 8 360 P Taking 09/12 00:00 :00 hydroCHLORO thiazide 25 MG Tablet 09/13/2023 00:00:00 1 30 4 5861332 8 360 P Start 10/14 00:00 :00 Medrol 4 MG Tablet Therapy Pack 10/14/2022 00:00:00 1 1 0 0095946 5 604 P Start 12/30 00:00 :00 MEDROL DOSEPAK 4 mg tablet 08/19/2021 00:00:00 1 1 0 6818851 5 604 P Not Taking 10/21 00:00 :00 MEDROL DOSEPAK 4 mg tablet 08/19/2021 00:00:00 1 1 0 7509182 5 604 P Not Taking 10/05 00:00 :00 MEDROL DOSEPAK 4 mg tablet 08/19/2021 00:00:00 1 1 0 4274093 5 604 P Not Taking 08/19 00:00 :00 MEDROL DOSEPAK 4 mg tablet 08/19/2021 00:00:00 1 1 0 [id number] 5 604 P Start 02/17 00:00 :00 MIRAPEX 0.25 mg tab 0 46190202 490 Stop 02/10 00:00 :00 MIRAPEX 0.25 mg tab 1 60 1 74773170 490 Start 02/10 00:00 :00 MIRAPEX 0.25 mg tab 0 60 1 37546106 490 Stop 12/30 00:00 :00 MIRAPEX 0.25 mg tab 1 60 1 [id number] 490 Taking 10/21 00:00 :00 MIRAPEX 0.25 mg tab 1 60 1 [id number] 490 Unknown Status 10/21 00:00 :00 MIRAPEX 0.25 mg tab 1 180 Tablet 1 [id number] 490 Taking 10/12 00:00 :00 MIRAPEX 0.25 mg tab 1 180 Tablet 1 13284545 490 Start 10/12 00:00 :00 MIRAPEX 0.25 mg tab 0 180 Tablet 1 [id number] 490 Stop 10/05 00:00 :00 MIRAPEX 0.25 mg tab 04/22/2021 00:00:00 1 180 Tablet 1 [id number] 490 Taking 08/19 00:00 :00 MIRAPEX 0.25 mg tab 04/22/2021 00:00:00 1 180 Tablet 1 [id number] 490 Taking 03/12 00:00 :00 Potassium Chloride ER 10 MEQ Capsule Extended Release 09/26/2023 00:00:00 1 60 Capsule 3 64892750 310 P Taking 01/29 00:00 :00 Potassium Chloride ER 10 MEQ Capsule Extended Release 09/26/2023 00:00:00 1 60 Capsule 3 02458832 310 P Taking 12/28 00:00 :00 Potassium Chloride ER 10 MEQ Capsule Extended Release 09/26/2023 00:00:00 1 60 Capsule 3 [id number] 310 P Taking 11/13 00:00 :00 Potassium Chloride ER 10 MEQ Capsule Extended Release 09/26/2023 00:00:00 1 60 Capsule 3 16703399 310 P Unknown Status 11/13 00:00 :00 Potassium Chloride ER 10 MEQ Capsule Extended Release 09/26/2023 00:00:00 1 30 Capsule 5 39896621 310 P Taking 09/22 00:00 :00 Potassium Chloride ER 10 MEQ Capsule Extended Release 09/26/2023 00:00:00 1 30 Capsule 5 81481632 310 P Start 06/30 00:00 :00 PRAMIPEXOLE 0.25 mg tablet 1 180 Tablet 2 51268263 461 Taking 06/25 00:00 :00 PRAMIPEXOLE 0.25 mg tablet 1 180 Tablet 2 37328465 461 Start 06/25 00:00 :00 PRAMIPEXOLE 0.25 mg tablet 0 180 Tablet 1 [id number] 461 Stop 02/17 00:00 :00 PRAMIPEXOLE 0.25 mg tablet 02/17/2022 00:00:00 1 180 Tablet 1 [id number] 461 P Start 03/23 00:00 :00 Pramipexole Dihydrochlo ride 0.25 MG Tablet 1 180 Tablet 0 37998614 190 Start 03/23 00:00 :00 Pramipexole Dihydrochlo ride 0.25 MG Tablet 0 180 Tablet 1 58692238 461 Stop 03/12 00:00 :00 Pramipexole Dihydrochlo ride 0.25 MG Tablet 1 180 Tablet 1 [id number] 461 Taking 01/29 00:00 :00 Pramipexole Dihydrochlo ride 0.25 MG Tablet 1 180 Tablet 1 [id number] 461 Taking 12/28 00:00 :00 Pramipexole Dihydrochlo ride 0.25 MG Tablet 1 180 Tablet 1 77896576 461 Taking 11/13 00:00 :00 Pramipexole Dihydrochlo ride 0.25 MG Tablet 1 180 Tablet 1 78154625 461 Taking 10/23 00:00 :00 Pramipexole Dihydrochlo ride 0.25 MG Tablet 1 180 Tablet 1 84584563 461 Start 10/23 00:00 :00 Pramipexole Dihydrochlo ride 0.25 MG Tablet 0 180 Tablet 1 22744873 461 Stop 09/21 00:00 :00 Pramipexole Dihydrochlo ride 0.25 MG Tablet 1 180 Tablet 1 62050145 461 Taking 09/12 00:00 :00 Pramipexole Dihydrochlo ride 0.25 MG Tablet 1 180 Tablet 1 62851010 461 Taking 04/25 00:00 :00 Pramipexole Dihydrochlo ride 0.25 MG Tablet 1 180 Tablet 1 [id number] 461 Taking 04/25 00:00 :00 Pramipexole Dihydrochlo ride 0.25 MG Tablet 1 180 Tablet 1 50114704 461 Start 04/25 00:00 :00 Pramipexole Dihydrochlo ride 0.25 MG Tablet 0 180 Tablet 1 26093902 461 Stop 01/24 00:00 :00 Pramipexole Dihydrochlo ride 0.25 MG Tablet 1 180 Tablet 1 [id number] 461 Taking 01/21 00:00 :00 Pramipexole Dihydrochlo ride 0.25 MG Tablet 1 180 Tablet 1 74989537 461 Start 01/21 00:00 :00 Pramipexole Dihydrochlo ride 0.25 MG Tablet 0 180 Tablet 2 [id number] 461 Stop 12/30 00:00 :00 Pramipexole Dihydrochlo ride 0.25 MG Tablet 1 180 Tablet 2 [id number] 461 Taking 10/28 00:00 :00 Pramipexole Dihydrochlo ride 0.25 MG Tablet 1 180 Tablet 2 [id number] 461 Taking 10/14 00:00 :00 Pramipexole Dihydrochlo ride 0.25 MG Tablet 1 180 Tablet 2 [id number] 461 Taking 07/31 00:00 :00 Pramipexole Dihydrochlo ride 0.25 MG Tablet 1 180 Tablet 2 [id number] 461 Taking 12/30 00:00 :00 PREDNISONE 5MG 10/05/2021 00:00:00 1 43 0 [id number] 2 825 P Not Taking 10/21 00:00 :00 PREDNISONE 5MG 10/05/2021 00:00:00 1 43 0 [id number] 2 825 P Not Taking 10/05 00:00 :00 PREDNISONE 5MG 10/05/2021 00:00:00 1 43 0 [id number] 2 825 P Start 03/12 00:00 :00 Slow Fe 142 (45 Fe) MG Tablet Extended Release 1 [id number] 730 Taking 01/29 00:00 :00 Slow Fe 142 (45 Fe) MG Tablet Extended Release 1 [id number] 730 Taking 12/28 00:00 :00 Slow Fe 142 (45 Fe) MG Tablet Extended Release 1 [id number] 730 Taking 11/13 00:00 :00 Slow Fe 142 (45 Fe) MG Tablet Extended Release 1 [id number] 730 Taking 09/21 00:00 :00 Slow Fe 142 (45 Fe) MG Tablet Extended Release 1 [id number] 730 Taking 09/12 00:00 :00 Slow Fe 142 (45 Fe) MG Tablet Extended Release 1 [id number] 730 Taking 04/25 00:00 :00 Slow Fe 142 (45 Fe) MG Tablet Extended Release 1 [id number] 730 Taking 01/24 00:00 :00 Slow Fe 142 (45 Fe) MG Tablet Extended Release 1 [id number] 730 Taking 12/30 00:00 :00 Slow Fe 142 (45 Fe) MG Tablet Extended Release 1 [id number] 730 Taking 10/28 00:00 :00 Slow Fe 142 (45 Fe) MG Tablet Extended Release 1 [id number] 730 Taking 10/14 00:00 :00 Slow Fe 142 (45 Fe) MG Tablet Extended Release 1 [id number] 730 Taking 07/31 00:00 :00 Slow Fe 142 (45 Fe) MG Tablet Extended Release 1 [id number] 730 Taking 06/30 00:00 :00 SLOW FE (as element al iron) 45 mg tablet, extended release 1 Ta leonardo 03/12 00:00 :00 Spironolact one 25 MG Tablet 12/29/2023 00:00:00 1 30 3 [id number] 601 P Not Taking 01/29 00:00 :00 Spironolact one 25 MG Tablet 12/29/2023 00:00:00 1 30 3 [id number] 601 P Not Taking 12/28 00:00 :00 Spironolact one 25 MG Tablet 12/29/2023 00:00:00 1 30 3 [id number] 4 601 P Start 03/12 00:00 :00 Synthroid 150 MCG Tablet 1 [id number] 706 911 Taking 01/29 00:00 :00 Synthroid 150 MCG Tablet 1 [id number] 706 911 Taking 12/28 00:00 :00 Synthroid 150 MCG Tablet 1 [id number] 706 911 Taking 11/13 00:00 :00 Synthroid 150 MCG Tablet 1 53288 706 911 Taking 09/21 00:00 :00 Synthroid 150 MCG Tablet 1 [id number] 706 911 Taking 09/12 00:00 :00 Synthroid 150 MCG Tablet 1 [id number] 706 911 Taking 04/25 00:00 :00 Synthroid 150 MCG Tablet 1 [id number] 706 911 Taking 01/24 00:00 :00 Synthroid 150 MCG Tablet 1 [id number] 706 911 Taking 12/30 00:00 :00 Synthroid 150 MCG Tablet 1 [id number] 706 911 Taking 10/28 00:00 :00 Synthroid 150 MCG Tablet 1 [id number] 706 911 Taking 10/14 00:00 :00 Synthroid 150 MCG Tablet 1 [id number] 706 911 Taking 07/31 00:00 :00 Synthroid 150 MCG Tablet 1 34477 706 911 Taking 06/30 00:00 :00 SYNTHROID 150 mcg (0.15 mg) tablet 1 [id number] 960 Taking 12/30 00:00 :00 SYNTHROID 150 mcg (0.15 mg) tablet 1 [id number] 960 Taking 10/21 00:00 :00 SYNTHROID 150 mcg (0.15 mg) tablet 1 [id number] 960 Taking 10/05 00:00 :00 SYNTHROID 150 mcg (0.15 mg) tablet 1 [id number] 960 Taking 08/19 00:00 :00 SYNTHROID 150 mcg (0.15 mg) tablet 1 [id number] 960 Taking 09/21 00:00 :00 Valsartan 160 MG Tablet 0 [id number] 81 477 Stop 09/21 00:00 :00 Valsartan 160 MG Tablet 1 90 Tablet 1 0 [id number] 477 Taking 09/12 00:00 :00 Valsartan 160 MG Tablet 1 90 Tablet 1 0 [id number] 477 Taking 04/25 00:00 :00 Valsartan 160 MG Tablet 1 90 Tablet 1 0 [id number] 477 Taking 04/25 00:00 :00 Valsartan 160 MG Tablet 1 90 Tablet 1 0 [id number] 477 Start 04/25 00:00 :00 Valsartan 160 MG Tablet 0 90 Tablet 1 0 [id number] 477 Stop 01/24 00:00 :00 Valsartan 160 MG Tablet 1 90 Tablet 1 0 [id number] 477 Taking 12/30 00:00 :00 Valsartan 160 MG Tablet 1 90 Tablet 1 0 [id number] 477 Taking 10/28 00:00 :00 Valsartan 160 MG Tablet 1 90 Tablet 1 0 [id number] 477 Taking 10/27 00:00 :00 Valsartan 160 MG Tablet 1 90 Tablet 1 0 [id number] 477 Start 10/27 00:00 :00 Valsartan 160 MG Tablet 0 90 2 [id number] 81 477 Stop 10/14 00:00 :00 Valsartan 160 MG Tablet 1 90 2 [id number] 81 477 Taking 07/31 00:00 :00 Valsartan 160 MG Tablet 1 90 2 [id number] 81 477 Taking 06/30 00:00 :00 VALSARTAN 160 mg tablet 1 90 2 [id number] 06 410 Taking 04/30 00:00 :00 VALSARTAN 160 mg tablet 1 90 2 [id number] 06 410 Start 04/30 00:00 :00 VALSARTAN 160 mg tablet 0 90 1 [id number] 06 410 Stop 02/01 00:00 :00 VALSARTAN 160 mg tablet 1 90 1 [id number] 06 410 Start 02/01 00:00 :00 VALSARTAN 160 mg tablet 0 90 1 [id number] 06 410 Stop 12/30 00:00 :00 VALSARTAN 160 mg tablet 1 90 1 [id number] 06 410 Taking 11/03 00:00 :00 VALSARTAN 160 mg tablet 1 90 1 [id number] 06 410 Start 11/03 00:00 :00 VALSARTAN 160 mg tablet 0 90 1 [id number] 06 410 Stop 10/21 00:00 :00 VALSARTAN 160 mg tablet 1 90 1 [id number] 06 410 Taking 10/05 00:00 :00 VALSARTAN 160 mg tablet 1 90 1 [id number] 06 410 Taking 08/19 00:00 :00 VALSARTAN 160 mg tablet 1 90 1 [id number] 06 410 Taking 03/12 00:00 :00 Valsartan-h ydroCHLOROt hiazide 160-25 MG Tablet 1 90 Tablet 1 [id number] 377 Taking 01/29 00:00 :00 Valsartan-h ydroCHLOROt hiazide 160-25 MG Tablet 1 90 Tablet 1 [id number] 377 Taking 12/28 00:00 :00 Valsartan-h ydroCHLOROt hiazide 160-25 MG Tablet 1 90 Tablet 1 [id number] 377 Taking 11/13 00:00 :00 Valsartan-h ydroCHLOROt hiazide 160-25 MG Tablet 1 90 Tablet 1 [id number] 377 Taking 10/23 00:00 :00 Valsartan-h ydroCHLOROt hiazide 160-25 MG Tablet 1 90 Tablet 1 [id number] 377 Start 10/23 00:00 :00 Valsartan-h ydroCHLOROt hiazide 160-25 MG Tablet 0 30 4 [id number] 377 Stop 09/21 00:00 :00 Valsartan-h ydroCHLOROt hiazide 160-25 MG Tablet 09/22/2023 00:00:00 1 30 4 [id number] 377 P Start
== END 2024-07-11 23:59 | disposition home or self-care (01) ==
LOC: RAD 15:45
PROVIDERS: PCP Family Medicine; Visit Provider Family Medicine
DX: M47.26 Other spondylosis with radiculopathy, lumbar region (principal); M47.27 Other spondylosis with radiculopathy, lumbosacral region
CPT/HCPCS: 72148